=== PATIENT | female | born 1980 | race Caucasian/White ===

== ENCOUNTER → 2016-09-04 | Outpatient (CLI) | payer OTHER ==
[~2016-09-04] MED LIST: FERR325C PO; HYDR-3062 PO; IBP600T1 PO; LORA-877 PO; PNV1TABL9 PO
--- OUTSIDE RECORDS SUMMARY | 2016-09-04 08:44 | XMS REPORT | Continuity of Care Document ---
Author Author [facility] Organization [facility] Address Unknown Phone Unavailable Care Team Providers Care Specialty Finishing Utility Person Name Role Phone Kim Salgado PCP [phone] Source Comments Some departments are not documenting in the electronic medical record. If you do not see the information that you expected, contact Release of Information in the Health Information Management department at [phone] for further assistance in locating additional records.[facility] Active Allergies and Adverse Reactions No Known Allergies Current Medications Prescription Sig. Disp. Refills Start End Date Status Date MULTIVITAMIN PO Take by mouth. Active Active Problems No known active problems Social History Tobacco Use Types Packs/Day Years Used Date Never Smoker Alcohol Use Drinks/Week oz/Week Comments Yes rarely Last Filed Vital Signs Vital Sign Reading Time Taken Blood Pressure 123/79 12/24/2012 2:20 PM CDT Pulse 60 12/24/2012 2:20 PM CDT Temperature - - Respiratory Rate - - Height 1.575 m (5' 2") 12/24/2012 2:20 PM CDT Weight 60.963 kg (134 lb 6.4 oz) 12/24/2012 2:20 PM CDT Body Mass Index 24.58 12/24/2012 2:20 PM CDT Oxygen Saturation - - Plan of Care Health Maintenance Due Date Last Done Comments Physical (Comprehensive) 1988 Exam Pertussis Vaccine 1992 Tetanus Vaccine 1998 Cervical Cancer Screening 2002 Influenza Vaccine 04/06/2016 Results from Last 3 Months Not on file
--- NOTE | 2016-09-04 18:48 | Diagnostic Imaging Report ---
Exam: Bilateral breast ultrasound. Indication: Left breast lump. Followup right breast lesion seen at 1:30 o'clock position. Comparison: Right breast ultrasound from 06/08/2014. Findings: Left Breast: The area of lump around 10:30 o'clock position is scanned with no underlying abnormality seen. Right Breast: The right breast is also scanned around the 1:30 o'clock position where previous nodule was seen in 2013 with an underlying abnormality identified. Impression: Negative study. Clinical followup of palpable abnormality recommended. BI-RADS 1. ACR BI-RADS Category 1: Negative. Result letter will be mailed to the patient. Note: At least 10% of breast cancer is not imaged by mammography. Dictated by: Dictated on workstation # [id number]
== END ==
LOC: RAD 08:40
PROVIDERS: ATTEND Family Medicine
DX: N63 Unspecified lump in breast (principal)
CPT/HCPCS: 76642

== ENCOUNTER → 2018-02-25 | Outpatient (CLI) | payer OTHER ==
--- NOTE | 2018-02-25 08:54 | Diagnostic Imaging Report ---
PROCEDURE: US Gallbladder. TECHNIQUE: Multiple real-time grayscale images were obtained over the right upper quadrant in various projections. INDICATION: Epigastric pain. FINDINGS: Multiple stones within the gallbladder lumen, the gallbladder wall non-thickened, no pericholecystic edema or fluid and there was a negative Leach's sign. The biliary ducts are nondilated. The visualized portions of the pancreas are unremarkable. The right kidney normal in size, cortical thickness and echotexture. There is no fluid collection. IMPRESSION: Cholelithiasis, otherwise negative. Dictated by: Dictated on workstation # [id number]
== END ==
LOC: RAD 06:47
PROVIDERS: ATTEND Family Medicine
DX: K80.20 Calculus of gallbladder without cholecystitis without obstruction (principal)
CPT/HCPCS: 76705

== ENCOUNTER 2018-07-08 05:38 | Outpatient (CLI) | payer OTHER ==
[~2018-07-08] VITALS: Ht 157.5 cm; Wt 59.9 kg
== END 2018-07-08 14:43 | disposition home or self-care (01) ==
LOC: PREOP 05:38
PROVIDERS: ATTEND Surgery
DX: Z01.818 Encounter for other preprocedural examination (principal)

== ENCOUNTER 2018-07-16 10:34 | Day surgery (SDC) | payer OTHER ==
[~2018-07-16] VITALS: Ht 157.5 cm; Wt 60.0 kg
[2018-07-16] MEDS ORDERED: LIDOCAINE/EPI 1%-1:100,000 (XYLOCAINE) 20ML ONE ×2 (10:38→10:50)
[2018-07-16 10:40] VITALS: BP 114/78
--- OUTSIDE RECORDS SUMMARY | 2018-07-16 10:44 | XMS REPORT | Clinical Summary ---
Author Author [facility] Organization [facility] Address Unknown Phone Unavailable Care Team Providers Care Brain Picker Name Role Phone Rubi Adams MD Unavailable Kim Salgado MD PCP Jesus Gonzales OD Unavailable Source Comments Some departments are not documenting in the electronic medical record. If you do not see the information that you expected, contact Release of Information in the Health Information Management department at [phone] for further assistance in locating additional records.[facility] Allergies No Known Allergies Medications End Date Status Medication Sig Dispensed Refills Start Date Active MULTIVITAMIN PO Take by 0 mouth. Active Problems No known active problems Family History Medical History Relation Name Comments Hypertension Father Coronary Artery Disease Maternal Grandfather Macular Degen Maternal Grandfather Stroke Maternal Grandfather Cancer Other Cancer Paternal Aunt Amblyopia Neg Hx Autoimmune Disease Neg Hx Blindness Neg Hx Cataract Neg Hx Diabetes Neg Hx Glaucoma Neg Hx Neurologic Disorder Neg Hx Retinal Detachment Neg Hx Strabismus Neg Hx Thyroid Disease Neg Hx Relation Name Status Comments Father Maternal Grandfather Other Paternal Aunt Social History Date Tobacco Use Types Packs/Day Years Used Never Smoker Alcohol Use Drinks/Week oz/Week Comments Yes rarely Sex Assigned at Date Recorded Not on file Industry Job Start Date Occupation Not on file Not on file Not on file Travel End Travel History Travel Start No recent travel history available. Last Filed Vital Signs Time Taken Vital Sign Reading 12/24/2012 2:20 PM CDT Blood Pressure 123/79 12/24/2012 2:20 PM CDT Pulse 60 - Temperature - - Respiratory Rate - - Oxygen Saturation - - Inhaled Oxygen - Concentration 12/24/2012 2:20 PM CDT Weight 61 kg (134 lb 6.4 oz) 12/24/2012 2:20 PM CDT Height 157.5 cm (5' 2") 12/24/2012 2:20 PM CDT Body Mass Index 24.58 Plan of Treatment Health Maintenance Due Date Last Done Comments PHYSICAL (COMPREHENSIVE) 1988 EXAM HIV SCREENING 1996 DTAP/TDAP VACCINES (1 - 1999 Tdap) CERVICAL CANCER SCREENING 2011 INFLUENZA VACCINE 03/06/2018 Results Not on filefrom Last 3 Months
--- OUTSIDE RECORDS SUMMARY | 2018-07-16 10:44 | XMS REPORT ---
Author Author CLAUS CUETO [facility] Address [address] [place] [address] Care Team Providers Care Linen Controller Name Role Phone CLAUS CUETO Unavailable PROBLEMS Type Condition ICD9-CM Code ALP95-XK Code Onset Dates Condition Status SNOMED Code Problem Breast lump N63 Active 33212073 Problem IUD (intrauterine device) in place Z97.5 Active 090414983 Problem Calculus of gallbladder without cholecystitis without obstruction K80.20 Active 239754085 ALLERGIES No Information ENCOUNTERS Encounter Location Date Diagnosis [address] [address] May, Encounter for immunization Z23 [place] [address] [address] Feb, RUQ abdominal pain R10.[address] [address] Feb, RUQ abdominal pain R10.11 ; Cervical cancer screening Z12.4 ; Rectal bleeding K62.5 and Epidermal inclusion cyst L72.0 [facility] [address] [id number] [place] [id number] Jan, Dental examination Z01.20 [place] [address] [place] [id number] [place] [address] Jan, [address] [address] December, Rectal bleeding K62.5 ; Internal hemorrhoid, bleeding K64.8 and Generalized abdominal pain R10.84 [place] [address] [place] [id number] [place] [address] Oct, Encounter for dental examination and cleaning without abnormal findings Z01.20 and Dental examination Z01.20 [facility] [address] [id number] [place] [address] Sep, Dental examination Z01.20 [facility] [address] [place] [id number] [place] [address]- [address] 07 Sep, 2017 Right hip pain M25.551 [facility] [address] [address] Aug, Right hip pain M25.551 [facility] [address] [id number] [place] [address] May, Encounter for immunization Z23 [facility] [address] [id number] [place] [address]- [address] Mar, Well adult exam Z00.00 and Lymphadenopathy of right cervical region R59.0 [facility] [address] [address] Mar, Lymphadenopathy of right cervical region R59.0 [facility] [address] [id number] [place] [address]- [address] Jan, Well adult exam Z00.00 [facility] [address] [id number] [place] [address]- [address] Jan, Acute non-recurrent maxillary sinusitis J01.00 [facility] [id number] [place] [address]- [address] Aug, [facility] [address] [id number] [place] [address]- [address] Aug, Breast lump N63 [facility] [address] [address] Aug, Dental examination Z01.20 [facility] [address] [id number] [place] [address]- [address] May, Encounter for immunization Z23 [facility] [address], [place] [address] December, Encounter for gynecological examination without abnormal finding Z01.419 and IUD (intrauterine device) in place Z97.5 [facility] [id number] [place] [id number] Oct, Encounter for dental examination Z01.20 [facility] [address] [address] 29 Apr, 2015 Influenza vaccine administered V04.81 [facility] [address] [id number] Apr, 2015 Encounter for dental examination V72.2 [facility] [address] [address] 14 Feb, 2015 [facility] [address] 565272- [address] Jan, Hip pain, right 719.45 and Somatic dysfunction of pelvic region 739.5 [facility] [address] [address] Nov, [facility] [address] [address] Nov, [facility] [address] [id number] [place] [address]- [address] Aug, [facility] [address] [id number] [place] [address]- [address] Aug, [facility] [id number] [place] [address]- [address] Aug, [facility] [address] 416603- [address] Aug, [facility] [address] 0[address]- [address] May, [facility] [address] [id number] [place] [address]- [address] May, [facility] [place] [facility] [address] [id number] [place] [address] 14 May, 2014 [facility] [place] [facility] [address] [id number] [place] [address]49 14 May, 2014 [facility] [place] [facility] [address] [id number] [place] [address] May, [facility] [place] [facility] [address] [id number] [place] [address] May, [facility] [place] [facility] [address] [id number] [place] [address] Jan, [facility] [place] [facility] [address] [id number] [place] [address] 8947 Jan, [facility] [place] [facility] [address] [id number] [place] [address]- [address] Jan, [facility] [place] [facility] [address] [id number] [place] [address]- [address] Jan, [facility] [place] [facility] [address] [id number] [place] [address]- [address] Jan, [facility] [place] [facility] [address] [id number] [place] [address]- [address] Nov, [facility] [place] [facility] [address] [id number] [place] [address]- [address] Nov, [facility] [place] [facility] [address] [id number] [place] [address]- 6792 Nov, [facility] [place] [facility] [address] [id number] [place] [address]- [address] Nov, [facility] [place] [facility] [address] [id number] [place] [address]- [address] 16 Nov, 2013 [facility] [place] [facility] [address] [id number] [place] [address]- [address] 16 Nov, 2013 [facility] [place] [facility] [address] [id number] [place] [address]- 6078 Nov, [facility] [place] [facility] [address] [id number] [place] [address]- [address] Nov, [facility] [place] [facility] [address] [id number] [place] [address]- 4988 Nov, [facility] [place] [facility] [address] [id number] [place] [address]- 8853 Nov, [facility] [place] [facility] [address] [id number] [place] [address]- 288[address] Nov, [facility] [place] [facility] [address] [id number] [place] [address]- 4667 Nov, [facility] [place] [facility] [address] [id number] [place] [address]- 0957 Oct, [facility] [place] [facility] [address] [id number] [place] [address]- [address] Oct, [facility] [place] [facility] [address] [id number] [place] [address]- [address] Oct, [facility] [place] [facility] [address] [id number] [place] [address]- 59[address] Oct, [facility] [place] [facility] [address] [id number] [place] [address]- 46[address] Sep, [facility] [place] [facility] [address] [id number] [place] [address]- 7094 Sep, [facility] [place] [facility] [address] [id number] [place] [address]- 97[address] Sep, [facility] [place] [facility] [address] [id number] [place] [address]- 9[address] Sep, [facility] [place] [facility] [address] [id number] [place] [address]- [address]105 Sep, [facility] [place] [facility] [address] [id number] [place] [address]- 97[address] Sep, [facility] [place] [facility] [address] [id number] [place] [address]- 4964 Sep, [facility] [address] [id number] [place] [address]- 9096 Sep, [facility] [place] [facility] [address] [id number] [place] [address]- 6594 Aug, [facility] [place] [facility] [address] [id number] [place] [address]- 7955 Aug, [facility] [place] [facility] [address] [id number] [place] [address]- 3590 Aug, [facility] [place] [facility] [address] [id number] [place] [address]- 9027 Aug, [facility] [place] [facility] [address] [id number] [place] [address]- 2705 Aug, [facility] [place] [facility] [address] [id number] [place] [address]- 7204 Aug, [facility] [place] [facility] [address] [id number] [place] [address]- 74[address] Jul, [facility] [place] [facility] [address] [id number] [place] [address]- 4956 Jul, [facility] [place] [facility] [address] [id number] [place] [address]- 8956 Jun, [facility] [place] [facility] [address] [id number] [place] [address]- 5102 Jun, [facility] [place] [facility] [address] [id number] [place] [address]- 2640 Jun, [facility] [place] [facility] [address] [id number] [place] [address]- 4991 Jun, [facility] [place] [facility] [address] [id number] [place] [address]- 4394 Jun, [facility] [place] [facility] [address] [id number] [place] [address]- 5441 Jun, [facility] [address] [facility] [id number], [place] [address] Jun, [facility] [address] [facility] [id number], [place] [address]- [address] May, [facility] [address] [facility] [id number], [place] [address]- [address] May, [facility] [address] [facility] [id number], [place] [address]- [address] May, [facility] [address] [facility] [id number] [address] May, [facility] [address] [facility] [id number] [place] [address] 933662- [address]954 May, [facility] [address] [facility] [id number] May, [facility] [address] [facility] [id number], [place] [address]- 8979 May, [facility] [address] [facility] [id number] [address] May, [facility] [address] [facility] [id number] May, [facility] [address] [facility] [id number], [place] [address]- [address]15 Apr, IMMUNIZATIONS Vaccine Route Administration Date Status FLULAVAL QUAD 0.5ML (6 MO & UP) 2018 IM Intramuscular May 10, 2018 Administered SOCIAL HISTORY Never Assessed REASON FOR VISIT Flu shot-awoods PLAN OF CARE VITAL SIGNS MEDICATIONS Unknown Medications RESULTS No Results PROCEDURES Procedure Date Ordered Result Body Site FLULAVAL QUAD 0.5ML (6 MO AND UP) 2018 May 10, 2018 SINGLE IMMUNIZATION ADMIN May 10, 2018 INSTRUCTIONS MEDICATIONS ADMINISTERED No Known Medications MEDICAL (GENERAL) HISTORY Type Description Date Medical History no surgeries or serious illness Medical History IUD (intrauterine device) in place Surgical History surgical extraction of 3rd molars 08/2001 Hospitalization History No know Hospitalization history
--- OUTSIDE RECORDS SUMMARY | 2018-07-16 10:44 | XMS REPORT ---
Author Author CLAUS CUETO [facility] Address [address] [place] [address] Care Team Providers Care Oil Well Services Superintendent Name Role Phone CLAUS CUETO Unavailable PROBLEMS Type Condition ICD9-CM Code PED05-GH Code Onset Dates Condition Status SNOMED Code Problem Breast lump N63 Active 92496474 Problem IUD (intrauterine device) in place Z97.5 Active 017649593 Problem Calculus of gallbladder without cholecystitis without obstruction K80.20 Active 079324265 ALLERGIES No Information ENCOUNTERS Encounter Location Date Diagnosis [place] [address] [address]- 8[address] Jun, [place] [address] 47767- 9736 May, Encounter for immunization Z23 [place] [address] 69650- 3127 Feb, RUQ abdominal pain R10.11 [place] [address] 33060- 5774 Feb, RUQ abdominal pain R10.11 ; Cervical cancer screening Z12.4 ; Rectal bleeding K62.5 and Epidermal inclusion cyst L72.0 [facility] [address] [id number] Jan, Dental examination Z01.20 [place] [address] 36353- 4588 Jan, [place] [address] 77374- 9526 December, Rectal bleeding K62.5 ; Internal hemorrhoid, bleeding K64.8 and Generalized abdominal pain R10.84 [place] [address] [place] [address] 36468- 0973 Oct, Encounter for dental examination and cleaning without abnormal findings Z01.20 and Dental examination Z01.20 [facility] [address] [place] [id number] [place] [address] 94830- 7959 Sep, Dental examination Z01.20 [facility] [id number] [place] [address] 08280- 2997 Sep, Right hip pain M25.551 [facility] [id number] [place] [address] 67935- 2107 Aug, Right hip pain M25.551 [facility] [address] [id number] [place] [address] 72376- 6093 May, Encounter for immunization Z23 [facility] [id number] [place] [address] 83718- 3911 Mar, Well adult exam Z00.00 and Lymphadenopathy of right cervical region R59.0 [facility] [id number] [place] [address] 94394- 5645 Mar, Lymphadenopathy of right cervical region R59.0 [facility] [id number] [place] [address] 82973- 9346 Jan, Well adult exam Z00.00 [facility] [id number] [place] [address] 74810- 4267 Jan, Acute non-recurrent maxillary sinusitis J01.00 [facility] [id number] [place] [address] 76753- 7544 Aug, [facility] [id number] [place] [address] 91711- 8226 Aug, Breast lump N63 [facility] [id number] [place] [address] 59359- 3617 Aug, Dental examination Z01.20 [facility] [id number] [place] [address] [id number]- 7351 May, Encounter for immunization Z23 [facility] [id number] [place] [address] 18831- 6206 December, Encounter for gynecological examination without abnormal finding Z01.419 and IUD (intrauterine device) in place Z97.5 [facility] [address] [place] [id number] [place] [address] [id number] Oct, Encounter for dental examination Z01.20 [facility] [address] 92321- 0961 29 Apr, 2015 Influenza vaccine administered V04.81 [facility] [address] [id number] Apr, Encounter for dental examination V72.2 [facility] [address] 20001- 4768 Feb, [facility] [address] 81338- 4191 Jan, Hip pain, right 719.45 and Somatic dysfunction of pelvic region 739.5 [facility] [address] [place] [id number] [place] [address] 62478- 5898 Nov, [facility] [address] [address] [id number] [place] [address] 97276- 8184 Nov, [facility] [address] [place] [id number] [place] [address] 15563- 9633 Aug, [facility] [address] [id number] [place] [address] 50611- 7938 Aug, [facility] [address] [place] [address] [id number] [place] [address] 18940- 6262 Aug, [facility] [address] [id number]- 7806 Aug, [facility] [address] [place] [id number] [place] [address] 59320- 6975 May, [facility] [place] [facility] [address] [id number] [place] [address]- 5130 27 May, 2014 [facility] [place] [facility] [address] [id number] [place] [address]- 4726 May, [facility] [place] [facility] [address] [id number] [place] [address]- 6927 May, [facility] [place] [facility] [address] [id number] [place] [address]- 2120 May, [facility] [place] [facility] [address] [id number] [place] [address]- 7719 May, [facility] [place] [facility] [address] [id number] [place] [address]- 4198 Jan, [facility] [place] [facility] [address] [id number] [place] [address]- 7930 Jan, [facility] [place] [facility] [address] [id number] [place] [address]- 4889 Jan, [facility] [place] [facility] [address] [id number] [place] [address]- 4148 Jan, [facility] [place] [facility] [address] [id number] [place] [address]- 5319 Jan, [facility] [place] [facility] [address] [id number] [place] [address]- 9124 Nov, [facility] [place] [facility] [address] [id number] [place] [address]- 5910 Nov, [facility] [place] [facility] [address] [id number] [place] [address]- 3434 Nov, [facility] [place] [facility] [address] [id number] [place] [address]- 2239 Nov, [facility] [place] [facility] [address] [id number] [place] [address]- 1313 Nov, [facility] [place] [facility] [address] [id number] [place] [address]- 1573 Nov, [facility] [place] [facility] [address] [id number] [place] [address]- 1334 Nov, [facility] [place] [facility] [address] [id number] [place] [address]- 4539 Nov, [facility] [place] [facility] [address] [id number] [place] [address]- 0242 Nov, [facility] [place] [facility] [address] [id number] [place] [address]- 3108 Nov, [facility] [place] [facility] [address] [id number] [place] [address]- 4398 Nov, [facility] [place] [facility] [address] [id number] [place] [address]- 7499 Nov, [facility] [place] [facility] [address] [id number] [place] [address]- 6815 Oct, [facility] [place] [facility] [address] [id number] [place] [address]- 7201 Oct, [facility] [place] [facility] [address] [id number] [place] [address]- 2420 Oct, [facility] [place] [facility] [address] [id number] [place] [address]- 7198 Oct, [facility] [place] [facility] [address] [id number] [place] [address]- 0790 Sep, [facility] [place] [facility] [address] [id number] [place] [address]- 5901 Sep, [facility] [place] [facility] [address] [id number] [place] [address]- 4895 Sep, [facility] [place] [facility] [address] [id number] [place] [address]- 5669 Sep, [facility] [place] [facility] [address] [id number] [place] [address]- 1951 Sep, [facility] [place] [facility] [address] [id number] [place] [address]- 0500 13 Sep, 2013 [facility] [address] [id number] [place] [address]- 1529 Sep, [facility] [place] [facility] [address] [id number] [place] [address]- 9076 Sep, [facility] [place] [facility] [address] [id number] [place] [address]- 0148 Aug, [facility] [place] [facility] [address] [id number] [place] [address]- 8638 Aug, [facility] [place] [facility] [address] [id number] [place] [address]- 7445 Aug, [facility] [place] [facility] [address] [id number] [place] [address]- 7397 Aug, [facility] [place] [facility] [address] [id number] [place] [address]- 1851 Aug, [facility] [place] [facility] [address] [id number] [place] [address]- 2115 Aug, [facility] [place] [facility] [address] [id number] [place] [address]- 0395 Jul, [facility] [place] [facility] [address] [id number] [place] [address]- 3406 Jul, [facility] [place] [facility] [address] [id number] [place] [address]- 4844 Jun, [facility] [place] [facility] [address] [id number] [place] [address]- 8646 Jun, [facility] [place] [facility] [address] [id number] [place] [address]- 1647 Jun, [facility] [place] [facility] [address] [id number] [place] [address]- 9028 Jun, [facility] [place] [facility] [address] [id number] [place] [address]- 6726 Jun, [facility] [address] [facility] [id number], [place] [address]- 8245 Jun, [facility] [address] [facility] [id number], [place] [address]- 5794 Jun, [facility] [address] [facility] [id number], [place] [address]- 3936 May, [facility] [address] [facility] [id number], [place] [address]- 0216 May, [facility] [address] [facility] [id number], [place] [address]- 1404 May, [facility] [address] [facility] [id number] [place] [address] 01301- 7008 May, [facility] [address], [place] [address]- 8085 May, [facility] [address] [address]- 1843 May, [facility] [address] [id number] 6159 May, [facility] [address] 1315 May, [facility] [address], [place] [address]- 5519 May, [facility] [address] [id number], [place] [address]- 6763 Apr, IMMUNIZATIONS No Known Immunizations SOCIAL HISTORY Never Assessed REASON FOR VISIT Referral PLAN OF CARE VITAL SIGNS MEDICATIONS Unknown Medications RESULTS No Results PROCEDURES No Known procedures INSTRUCTIONS MEDICATIONS ADMINISTERED No Known Medications MEDICAL (GENERAL) HISTORY Type Description Date Medical History no surgeries or serious illness Medical History IUD (intrauterine device) in place Surgical History surgical extraction of 3rd molars 08/2001 Hospitalization History No know Hospitalization history
--- OUTSIDE RECORDS SUMMARY | 2018-07-16 10:45 | XMS REPORT ---
Author Author CLAUS CUETO [facility] Address [address] [place] [address] Care Team Providers Care Lead Software Development Engineer Name Role Phone CLAUS CUETO Unavailable PROBLEMS Type Condition ICD9-CM Code JEA42-OA Code Onset Dates Condition Status SNOMED Code Problem Breast lump N63 Active 43790357 Problem IUD (intrauterine device) in place Z97.5 Active 414061077 Problem Calculus of gallbladder without cholecystitis without obstruction K80.20 Active 789760111 ALLERGIES No Known Allergies ENCOUNTERS Encounter Location Date Diagnosis [place] [id number] [address]- 8626 Feb, RUQ abdominal pain R10.11 [place] [address] [address]14- 6260 Feb, RUQ abdominal pain R10.11 ; Cervical cancer screening Z12.4 ; Rectal bleeding K62.5 and Epidermal inclusion cyst L72.0 [facility] [facility] [address] [place] [id number] [place] [address] [id number] Jan, Dental examination Z01.20 [place] [address] [place] [id number] [place] [address] 66434- 9218 Jan, [facility] [address] [place] [id number] [place] [address] 41356- 6722 December, Rectal bleeding K62.5 ; Internal hemorrhoid, bleeding K64.8 and Generalized abdominal pain R10.84 [place] [address] [place] [id number] [place] [address] 16137- 2347 Oct, Encounter for dental examination and cleaning without abnormal findings Z01.20 and Dental examination Z01.20 [facility] [address] [place] [id number] [place] [address] 07863- 3447 Sep, Dental examination Z01.20 [facility] [address] [place] [id number] [place] [address] 76229- 1018 07 Sep, 2017 Right hip pain M25.551 [facility] [address] [place] [id number] [place] [address] 80484- 9318 Aug, Right hip pain M25.551 [facility] [address] 88436- 8985 May, Encounter for immunization Z23 [facility] [address] [place] [id number] [place] [address] 31847- 4614 Mar, Well adult exam Z00.00 and Lymphadenopathy of right cervical region R59.0 [facility] [address] [place] [id number] [place] [address] 74302- 4250 Mar, Lymphadenopathy of right cervical region R59.0 [facility] [address] [place] [id number] [place] [address] 56668- 8436 Jan, Well adult exam Z00.00 [facility] [address] [place] [id number] [place] [address] 64019- 1807 Jan, Acute non-recurrent maxillary sinusitis J01.00 [facility] [address] [place] [id number] [place] [address] 98333- 4437 Aug, [facility] [address] [place] [id number] [place] [address] 46392- 2647 Aug, Breast lump N63 [facility] [address] [place] [id number] [place] [address] 37129- 5414 Aug, Dental examination Z01.20 [facility] [address] [place] [id number] [place] [address] 36637- 2060 14 May, 2016 Encounter for immunization Z23 [facility] [address] [place] [id number] [place] [address] 30919- 9125 December, Encounter for gynecological examination without abnormal finding Z01.419 and IUD (intrauterine device) in place Z97.5 [facility] [facility] [address] [id number] 21 Oct, 2015 Encounter for dental examination Z01.20 [facility] [address] [place] [id number] [place] [address] 99759- 1926 29 Apr, 2015 Influenza vaccine administered V04.81 [facility] [facility] [address] [id number] 14 Apr, 2015 Encounter for dental examination V72.2 [facility] [address] [place] [id number] [place] [address] 54531- 6906 14 Feb, 2015 [facility] [address] [place] [id number] [place] [address] 72572- 0251 08 Jan, 2015 Hip pain, right 719.45 and Somatic dysfunction of pelvic region 739.5 [facility] [address] [place] [address] 65585- 5905 Nov, [facility] [address] [place] [id number] [place] [address] [id number]- 1267 Nov, [facility] [address] [place] [address] 461184- 9694 Aug, [facility] [address] [place] [address] [id number]- 1750 Aug, [facility] [address] [address]- 5321 Aug, [facility] [address] [place] [id number] [place] [address] 57593139- 4832 Aug, [facility] [address] 1806 May, [facility] [address] [place] [address] 66122- 8866 May, [facility] [address] 0664 May, [facility] [address] [place] [id number] [place] [address]- 3672 14 May, 2014 [facility] [address] [id number] [place] [address]- 0088 May, [facility] [place] [facility] [address] [id number] [place] [address]- 1648 May, [facility] [address] [id number] [place] [address]- 9488 Jan, [facility] [place] [facility] [address] [id number] [place] [address]- 2038 Jan, [facility] [place] [facility] [address] [id number] [place] [address]- 1332 Jan, [facility] [place] [facility] [address] [id number] [place] [address]- 6126 Jan, [facility] [place] [facility] [address] [id number] [place] [address]- 3657 Jan, [facility] [place] [facility] [address] [id number] [place] [address]- 1223 Nov, [facility] [place] [facility] [address] [id number] [place] [address]- 2387 Nov, [facility] [place] [facility] [address] [id number] [place] [address]- 0878 Nov, [facility] [place] [facility] [address] [id number] [place] [address]- 8150 Nov, [facility] [place] [facility] [address] [id number] [place] [address]- 8078 Nov, [facility] [place] [facility] [address] [id number] [place] [address]- 4112 Nov, [facility] [place] [facility] [address] [id number] [place] [address]- 3081 Nov, [facility] [place] [facility] [address] [id number] [place] [address]- 3500 Nov, [facility] [place] [facility] [address] [id number] [place] [address]- 7098 Nov, [facility] [place] [facility] [address] [id number] [place] [address]- 8129 Nov, [facility] [place] [facility] [address] [id number] [place] [address]- 3352 Nov, [facility] [place] [facility] [address] [id number] [place] [address]- 1940 Nov, [facility] [place] [facility] [address] [id number] [place] [address]- 2439 Oct, [facility] [place] [facility] [address] [id number] [place] [address]- 6862 Oct, [facility] [place] [facility] [address] [id number] [place] [address]- 9268 Oct, [facility] [place] [facility] [address] [id number] [place] [address]- 3548 Oct, [facility] [place] [facility] [address] [id number] [place] [address]- 8954 Sep, [facility] [place] [facility] [address] [id number] [place] [address]- 4739 Sep, [facility] [place] [facility] [address] [id number] [place] [address]- 3002 Sep, [facility] [place] [facility] [address] [id number] [place] [address]- 3379 Sep, [facility] [place] [facility] [address] [id number] [place] [address]- 6424 Sep, [facility] [place] [facility] [address] [id number] [place] [address]- 3287 Sep, [facility] [place] [facility] [address] [facility] [id number] [place] [address]- 8620 Sep, [facility] [place] [facility] [address] [id number] [place] [address]- 8533 Sep, [facility] [address] [id number] [place] [address]- 5516 Aug, [facility] [address] [id number] [place] [address]- 7113 Aug, [facility] [address] [id number] [place] [address]- 9938 Aug, [facility] [address] [id number] [place] [address]- 9487 Aug, [facility] [address] [id number] [place] [address]- 5663 Aug, [facility] [address] [id number] [place] [address]- 8040 Aug, [facility] [address] [id number] [place] [address]- 4262 Jul, [facility] [address] [id number] [place] [address]- 6169 Jul, [facility] [address] [id number] [place] [address]- 3549 Jun, [facility] [address] [id number] [place] [address]- 5869 Jun, [facility] [place] [facility] [address] [id number] [place] [address]- 2730 Jun, [facility] [address] [id number] [place] [address] Jun, [facility] [place] [facility] [address] [id number] [place] [address] Jun, [facility] [place] [facility] [address] [id number] [place] [address] Jun, [facility] [address] [id number] [place] [address] Jun, [facility] [address] [id number] [address] May, [facility] [id number] [address] May, [facility] [id number], [place] [address] May, [facility] [id number], [place] [address] May, [facility] [id number], [place] [address] May, [facility] [id number], [place] [address] May, [facility] [id number], [place] [address] May, [facility] [id number], [place] [address] May, [facility] [address], [place] [address] May, [facility] [address], [place] [address] Apr, IMMUNIZATIONS No Known Immunizations SOCIAL HISTORY Never Assessed REASON FOR VISIT Abdominal Pain--tcuppettRN, Abdominal pain x 1 month, Perineal cyst concerns PLAN OF CARE Activity Details Follow Up prn Reason: VITAL SIGNS Height 62 in 2018-02-07 Weight 131.0 lbs 2018-02-07 Temperature 98.1 degrees Fahrenheit 2018-02-07 Heart Rate 64 bpm 2018-02-07 Respiratory Rate 20 2018-02-07 BMI 23.96 kg/m2 2018-02-07 Blood pressure systolic 108 mmHg 2018-02-07 Blood pressure diastolic 72 mmHg 2018-02-07 MEDICATIONS Medication Instructions Dosage Frequency Start Date End Date Duration Status Mirena Active Tylenol 1 tab Active Ibuprofen 200 MG Orally every 6 hrs 1 tablet with food or milk as needed 6h Active RESULTS No Results PROCEDURES Procedure Date Ordered Result Body Site SPECIMEN HANDLING February 07, 2018 TEST FOR BLOOD, FECES February 07, 2018 INSTRUCTIONS MEDICATIONS ADMINISTERED No Known Medications MEDICAL (GENERAL) HISTORY Type Description Date Medical History no surgeries or serious illness Medical History IUD (intrauterine device) in place Surgical History surgical extraction of 3rd molars 08/2001 Hospitalization History No know Hospitalization history
--- OUTSIDE RECORDS SUMMARY | 2018-07-16 10:45 | XMS REPORT ---
Author Author CLAUS CUETO [facility] Address [address] [place] [address] Care Team Providers Care Dental Assisting Instructor Name Role Phone CLAUS CUETO Unavailable PROBLEMS Type Condition ICD9-CM Code NVK54-FT Code Onset Dates Condition Status SNOMED Code Problem Breast lump N63 Active 67245430 Problem IUD (intrauterine device) in place Z97.5 Active 467497373 Problem Calculus of gallbladder without cholecystitis without obstruction K80.20 Active 195052916 ALLERGIES No Information ENCOUNTERS Encounter Location Date Diagnosis [place] [address] [address]- [address] Feb, RUQ abdominal pain R10.11 [place] [address] 58049- 7398 Feb, RUQ abdominal pain R10.11 ; Cervical cancer screening Z12.4 ; Rectal bleeding K62.5 and Epidermal inclusion cyst L72.0 [facility] [id number] [place] [address] [id number] Jan, Dental examination Z01.20 [place] [id number] [place] [address] 74174- 1932 Jan, [facility] [address] [place] [address] 57456- 4514 December, Rectal bleeding K62.5 ; Internal hemorrhoid, bleeding K64.8 and Generalized abdominal pain R10.[address] [address]- 8406 Oct, Encounter for dental examination and cleaning without abnormal findings Z01.20 and Dental examination Z01.20 [facility] [address] 28614- 1164 Sep, Dental examination Z01.20 [facility] [id number] [place] [address] 69792- 2540 07 Sep, 2017 Right hip pain M25.551 [facility] [id number] [place] [address] 15578- 0720 Aug, Right hip pain M25.551 [facility] [address] 00811- 2386 May, Encounter for immunization Z23 [facility] [id number] [place] [address] 63540- 1704 Mar, Well adult exam Z00.00 and Lymphadenopathy of right cervical region R59.0 [place] [id number] [place] [address] 76225- 9987 Mar, Lymphadenopathy of right cervical region R59.0 [place] [id number] [place] [address] 81013- 7105 Jan, Well adult exam Z00.00 [facility] [id number] [place] [address] 50750- 2292 Jan, Acute non-recurrent maxillary sinusitis J01.00 [facility] [id number] [place] [address] 54872- 6987 Aug, [facility] [id number] [place] [address] 32748- 8559 Aug, Breast lump N63 [facility] [id number] [place] [address] 60346- 9859 Aug, Dental examination Z01.20 [place] [id number] [place] [address] 94638- 4290 14 May, 2016 Encounter for immunization Z23 [facility] [id number] [place] [address] 74867- 3126 December, Encounter for gynecological examination without abnormal finding Z01.419 and IUD (intrauterine device) in place Z97.5 [facility] [address] [id number] 21 Oct, 2015 Encounter for dental examination Z01.20 [facility] [id number] [place] [address] 06116- 6386 29 Apr, 2015 Influenza vaccine administered V04.81 [facility] [address] [id number] 14 Apr, 2015 Encounter for dental examination V72.2 [facility] [id number] [place] [address] 02039- 5921 14 Feb, 2015 [facility] [id number] [place] [address] 77389- 8850 08 Jan, 2015 Hip pain, right 719.45 and Somatic dysfunction of pelvic region 739.5 [facility] [id number] [place] [address] 53924- 6597 Nov, [facility] [id number] [place] [address] [id number]- 2341 Nov, [facility] [id number] [place] [address] 309198- 5393 Aug, [facility] [id number] [place] [address] [id number]- 2010 Aug, [facility] [address], [place] [address]- 2124 Aug, [facility] [id number] [place] [address] [id number]- 2698 Aug, [facility] [address] [address] 6536 May, [facility] [id number] [place] [address] 02119- 7166 May, [facility] [address] 2264 May, [facility] [id number] [address]- 9104 14 May, 2014 [facility] [address] [id number] [place] [address]- 8309 May, [facility] [place] [facility] [address] [id number] [place] [address]- 4306 May, [facility] [place] [facility] [address] [id number] [place] [address]- 3600 Jan, [facility] [place] [facility] [address] [id number] [place] [address]- 2769 Jan, [facility] [place] [facility] [address] [id number] [place] [address]- 5039 Jan, [facility] [place] [facility] [address] [id number] [place] [address]- 7391 Jan, [facility] [place] [facility] [address] [id number] [place] [address]- 0358 Jan, [facility] [place] [facility] [address] [id number] [place] [address]- 5420 Nov, [facility] [place] [facility] [address] [id number] [place] [address]- 3452 Nov, [facility] [place] [facility] [address] [id number] [place] [address]- 5621 Nov, [facility] [place] [facility] [address] [id number] [place] [address]- 6860 Nov, [facility] [place] [facility] [address] [id number] [place] [address]- 9123 16 Nov, 2013 [facility] [place] [facility] [address] [id number] [place] [address]- 6187 Nov, [facility] [place] [facility] [address] [id number] [place] [address]- 0266 Nov, [facility] [place] [facility] [address] [id number] [place] [address]- 1012 Nov, [facility] [place] [facility] [address] [id number] [place] [address]- 2439 Nov, [facility] [place] [facility] [address] [id number] [place] [address]- 4996 Nov, [facility] [place] [facility] [address] [id number] [place] [address]- 3259 Nov, [facility] [place] [facility] [address] [id number] [place] [address]- 3130 Nov, [facility] [place] [facility] [address] [id number] [place] [address]- 3253 Oct, [facility] [place] [facility] [address] [id number] [place] [address]- 6572 Oct, [facility] [place] [facility] [address] [id number] [place] [address]- 7770 Oct, [facility] [place] [facility] [address] [id number] [place] [address]- 6169 Oct, [facility] [place] [facility] [address] [id number] [place] [address]- 9765 Sep, [facility] [place] [facility] [address] [id number] [place] [address]- 3001 Sep, [facility] [place] [facility] [address] [id number] [place] [address]- 1022 Sep, [facility] [place] [facility] [address] [id number] [place] [address]- 2284 Sep, [facility] [place] [facility] [address] [id number] [place] [address]- 0688 Sep, [facility] [place] [facility] [address] [id number] [place] [address]- 7224 Sep, [facility] [place] [facility] [address] [id number] [place] [address]- 2993 Sep, [facility] [place] [facility] [address] [id number] [place] [address]- 9409 Sep, [facility] [address] [id number] [place] [address]- 1289 Aug, [facility] [address] [id number] [place] [address]- 1633 Aug, [facility] [address] [id number] [place] [address]- 6924 Aug, [facility] [address] [id number] [place] [address]- 0702 Aug, [facility] [address] [id number] [place] [address]- 0529 Aug, [facility] [address] [id number] [place] [address]- 2420 Aug, [facility] [address] [id number] [place] [address]- 8048 Jul, [facility] [address] [id number] [place] [address]- 3856 Jul, [facility] [address] [id number] [place] [address]- 3022 Jun, [facility] [address] [id number] [place] [address]- 2984 Jun, [facility] [address] [id number] [place] [address]- 4516 Jun, [facility] [address] [id number] [place] [address]- 2965 Jun, [facility] [place] [facility] [address] [id number] [place] [address]- 7765 Jun, [facility] [place] [facility] [address] [id number] [place] [address]- 3033 Jun, [facility] [address] [id number] [place] [address]- 3864 Jun, [facility] [address] [facility] [id number] [address]- 2165 May, [facility] [address] [facility] [id number], [place] [address]- 4624 May, [facility] [address] [facility] [id number], [place] [address]- 8638 May, [facility] [address] [facility] [id number], [place] [address]- 9430 May, [facility] [address] [facility] [id number], [place] [address]- 2959 May, [facility] [address] [facility] [id number], [place] [address]- 2808 May, [facility] [address], [place] [address]- 6595 May, [facility] [address], [place] [address]- 4876 May, [facility] [address], [place] [address]- 3936 May, [facility] [id number], [place] [address]- 9442 Apr, IMMUNIZATIONS No Known Immunizations SOCIAL HISTORY Never Assessed REASON FOR VISIT well woman exam PLAN OF CARE VITAL SIGNS MEDICATIONS Unknown Medications RESULTS No Results PROCEDURES No Known procedures INSTRUCTIONS MEDICATIONS ADMINISTERED No Known Medications MEDICAL (GENERAL) HISTORY Type Description Date Medical History no surgeries or serious illness Medical History IUD (intrauterine device) in place Surgical History surgical extraction of 3rd molars 08/2001
--- OUTSIDE RECORDS SUMMARY | 2018-07-16 10:45 | XMS REPORT ---
Author Author CLAUS CUETO [facility] Address [address] [place] [address] Care Team Providers Care International Trade Compliance Manager Name Role Phone CLAUS CUETO Unavailable PROBLEMS Type Condition ICD9-CM Code OZI69-GO Code Onset Dates Condition Status SNOMED Code Problem Breast lump N63 Active 38085885 Problem IUD (intrauterine device) in place Z97.5 Active 322892810 Problem Calculus of gallbladder without cholecystitis without obstruction K80.20 Active 552598482 ALLERGIES No Information ENCOUNTERS Encounter Location Date Diagnosis [place] [address] [address]- 0628 Feb, RUQ abdominal pain R10.11 [place] [address] 01419- 5030 Feb, RUQ abdominal pain R10.11 ; Cervical cancer screening Z12.4 ; Rectal bleeding K62.5 and Epidermal inclusion cyst L72.0 [facility] [id number] [place] [address] [id number] Jan, Dental examination Z01.20 [place] [id number] [place] [address] 21586- 2369 Jan, [facility] [address] [place] [address] 49701- 6205 December, Rectal bleeding K62.5 ; Internal hemorrhoid, bleeding K64.8 and Generalized abdominal pain R10.[address] 6[address]87- 8435 Oct, Encounter for dental examination and cleaning without abnormal findings Z01.20 and Dental examination Z01.20 [facility] [address] 60794- 7676 Sep, Dental examination Z01.20 [facility] [id number] [place] [address] 43471- 4695 07 Sep, 2017 Right hip pain M25.551 [facility] [id number] [place] [address] 59653- 5038 Aug, Right hip pain M25.551 [facility] [address] 82542- 1168 May, Encounter for immunization Z23 [facility] [id number] [place] [address] 68405- 0261 Mar, Well adult exam Z00.00 and Lymphadenopathy of right cervical region R59.0 [place] [id number] [place] [address] 65657- 7170 Mar, Lymphadenopathy of right cervical region R59.0 [place] [id number] [place] [address] 88873- 6109 Jan, Well adult exam Z00.00 [facility] [id number] [place] [address] 01726- 5667 Jan, Acute non-recurrent maxillary sinusitis J01.00 [facility] [id number] [place] [address] 59170- 9508 Aug, [facility] [id number] [place] [address] 48494- 2144 Aug, Breast lump N63 [facility] [id number] [place] [address] 58220- 2039 Aug, Dental examination Z01.20 [place] [id number] [place] [address] 65823- 0759 14 May, 2016 Encounter for immunization Z23 [facility] [id number] [place] [address] 06840- 4867 December, Encounter for gynecological examination without abnormal finding Z01.419 and IUD (intrauterine device) in place Z97.5 [facility] [address] [id number] 21 Oct, 2015 Encounter for dental examination Z01.20 [facility] [id number] [place] [address] 40415- 1986 29 Apr, 2015 Influenza vaccine administered V04.81 [facility] [address] [id number] 14 Apr, 2015 Encounter for dental examination V72.2 [facility] [id number] [place] [address] 26922- 4014 14 Feb, 2015 [facility] [id number] [place] [address] 50675- 1722 08 Jan, 2015 Hip pain, right 719.45 and Somatic dysfunction of pelvic region 739.5 [facility] [id number] [place] [address] 00922- 5725 Nov, [facility] [id number] [place] [address] [id number]- 6385 Nov, [facility] [address] [place] [address] 887121- 6012 Aug, [facility] [id number] [place] [address] [id number]- 4861 Aug, [facility] [address], [place] [address]- 7423 Aug, [facility] [id number] [place] [address] [id number]- 8726 Aug, [facility] [address] 4280 May, [facility] [id number] [place] [address] 43163- 3836 May, [facility] [address] 9691 May, [facility] [id number] [place] [address]- 9040 14 May, 2014 [facility] [address] [id number] [place] [address]- 8468 May, [facility] [place] [facility] [address] [id number] [place] [address]- 5865 May, [facility] [place] [facility] [address] [id number] [place] [address]- 5942 Jan, [facility] [place] [facility] [address] [id number] [place] [address]- 9659 Jan, [facility] [place] [facility] [address] [id number] [place] [address]- 8190 Jan, [facility] [place] [facility] [address] [id number] [place] [address]- 8088 Jan, [facility] [place] [facility] [address] [id number] [place] [address]- 3021 Jan, [facility] [place] [facility] [address] [id number] [place] [address]- 3839 Nov, [facility] [place] [facility] [address] [id number] [place] [address]- 9960 Nov, [facility] [place] [facility] [address] [id number] [place] [address]- 2751 Nov, [facility] [place] [facility] [address] [id number] [place] [address]- 7910 Nov, [facility] [place] [facility] [address] [id number] [place] [address]- 0476 16 Nov, 2013 [facility] [place] [facility] [address] [id number] [place] [address]- 3424 Nov, [facility] [place] [facility] [address] [id number] [place] [address]- 1120 Nov, [facility] [place] [facility] [address] [id number] [place] [address]- 7145 Nov, [facility] [place] [facility] [address] [id number] [place] [address]- 4158 Nov, [facility] [place] [facility] [address] [id number] [place] [address]- 8676 Nov, [facility] [place] [facility] [address] [id number] [place] [address]- 4372 Nov, [facility] [place] [facility] [address] [id number] [place] [address]- 9212 Nov, [facility] [place] [facility] [address] [id number] [place] [address]- 3937 Oct, [facility] [place] [facility] [address] [id number] [place] [address]- 2592 Oct, [facility] [place] [facility] [address] [id number] [place] [address]- 2084 Oct, [facility] [place] [facility] [address] [id number] [place] [address]- 5677 Oct, [facility] [place] [facility] [address] [id number] [place] [address]- 7663 Sep, [facility] [place] [facility] [address] [id number] [place] [address]- 6587 Sep, [facility] [place] [facility] [address] [id number] [place] [address]- 2592 Sep, [facility] [place] [facility] [address] [id number] [place] [address]- 4585 Sep, [facility] [place] [facility] [address] [id number] [place] [address]- 7166 Sep, [facility] [place] [facility] [address] [id number] [place] [address]- 4755 Sep, [facility] [place] [facility] [address] [id number] [place] [address]- 5549 Sep, [facility] [place] [facility] [address] [id number] [place] [address]- 6569 Sep, [facility] [address] [id number] [place] [address]- 8570 Aug, [facility] [address] [id number] [place] [address]- 1074 Aug, [facility] [address] [id number] [place] [address]- 4113 Aug, [facility] [address] [id number] [place] [address]- 6985 Aug, [facility] [address] [id number] [place] [address]- 0030 Aug, [facility] [address] [id number] [place] [address]- 4800 Aug, [facility] [address] [id number] [place] [address]- 2887 Jul, [facility] [address] [id number] [place] [address]- 0134 Jul, [facility] [address] [id number] [place] [address]- 1834 Jun, [facility] [address] [id number] [place] [address]- 9256 Jun, [facility] [address] [id number] [place] [address]- 0871 Jun, [facility] [address] [id number] [place] [address]- 7026 Jun, [facility] [place] [facility] [address] [id number] [place] [address]- 7749 Jun, [facility] [place] [facility] [address] [id number] [place] [address]- 0541 Jun, [facility] [address] [id number] [place] [address] Jun, [facility] [id number] [address] May, [facility] [address] [facility] [id number], [place] [address] May, [facility] [address] [facility] [id number], [place] [address] May, [facility] [address] [facility] [id number], [place] [address] May, [facility] [address] [facility] [id number], [place] [address] May, [facility] [id number], [place] [address] May, [facility] [id number], [place] [address] May, [facility] [id number], [place] [address] May, [facility] [id number], [place] [address] May, [facility] [address] [id number], [place] [address] Apr, IMMUNIZATIONS No Known Immunizations SOCIAL HISTORY Never Assessed REASON FOR VISIT Lab (walk-in)--GHAZAL Marlow PLAN OF CARE VITAL SIGNS MEDICATIONS Unknown Medications RESULTS No Results PROCEDURES Procedure Date Ordered Result Body Site COMPREHEN METABOLIC PANEL February 11, 2018 COMPLETE CBC W/AUTO DIFF WBC February 11, 2018 VENIPUNCT, ROUTINE* February 11, 2018 INSTRUCTIONS MEDICATIONS ADMINISTERED No Known Medications MEDICAL (GENERAL) HISTORY Type Description Date Medical History no surgeries or serious illness Medical History IUD (intrauterine device) in place Surgical History surgical extraction of 3rd molars 08/2001
--- OUTSIDE RECORDS SUMMARY | 2018-07-16 10:45 | XMS REPORT ---
Author Author KRISTI HARRELL Organization [facility] Address [address] [place] [address] Care Team Providers Care Software Applications Designer Name Role Phone KRISTI HARRELL Unavailable PROBLEMS Type Condition ICD9-CM Code VJM37-HH Code Onset Dates Condition Status SNOMED Code Problem Breast lump N63 Active 31382177 Problem IUD (intrauterine device) in place Z97.5 Active 232385865 Problem Calculus of gallbladder without cholecystitis without obstruction K80.20 Active 557159385 ALLERGIES No Known Allergies ENCOUNTERS Encounter Location Date Diagnosis [place] [address] [address]- [address] Feb, RUQ abdominal pain R10.11 [place] [address] 22557- 6266 Feb, RUQ abdominal pain R10.11 ; Cervical cancer screening Z12.4 ; Rectal bleeding K62.5 and Epidermal inclusion cyst L72.0 [facility] [address] [place] [id number] [place] [address] [id number] Jan, Dental examination Z01.20 [place] [address] [address]47- 2082 Jan, [place] [address] [place] [id number] [place] [address] 40055- 1764 December, Rectal bleeding K62.5 ; Internal hemorrhoid, bleeding K64.8 and Generalized abdominal pain R10.84 [place] [address] 28753- 5596 Oct, Encounter for dental examination and cleaning without abnormal findings Z01.20 and Dental examination Z01.20 [facility] [address] 70076- 4409 Sep, Dental examination Z01.20 [facility] [address] [place] [id number] [place] [address] 38608- 2861 07 Sep, 2017 Right hip pain M25.551 [facility] [address] [place] [address] [id number] [place] [address] 33084- 6865 Aug, Right hip pain M25.551 [facility] [address] 24232- 4324 May, Encounter for immunization Z23 [facility] [address] 87759- 1516 Mar, Well adult exam Z00.00 and Lymphadenopathy of right cervical region R59.0 [facility] [address] 13507- 6853 Mar, Lymphadenopathy of right cervical region R59.0 [facility] [address] 76596- 3195 Jan, Well adult exam Z00.00 [facility] [address] 68211- 5387 Jan, Acute non-recurrent maxillary sinusitis J01.00 [facility] [address] [address] [id number] [place] [address] 77322- 3839 Aug, [facility] [address] [id number] [place] [address] 80885- 5737 Aug, Breast lump N63 [facility] [address] [address] [id number] [place] [address] 04462- 2627 Aug, Dental examination Z01.20 [facility] [address] [place] [address] [id number] [place] [address] 57793- 9444 May, Encounter for immunization Z23 [facility] [address] [place] [address] [id number] [place] [address] 87783- 9255 December, Encounter for gynecological examination without abnormal finding Z01.419 and IUD (intrauterine device) in place Z97.5 [facility] [id number] [place] [address] [id number] Oct, Encounter for dental examination Z01.20 [facility] [address] [address] [id number] [place] [address] 99110- 9256 29 Apr, 2015 Influenza vaccine administered V04.81 [facility] [address] [address] [id number] [place] [address] [id number] 14 Apr, 2015 Encounter for dental examination V72.2 [facility] [address] [place] [address] [id number] [place] [address] 27067- 1866 14 Feb, 2015 [facility] [address] 53068- 1586 08 Jan, 2015 Hip pain, right 719.45 and Somatic dysfunction of pelvic region 739.5 [facility] [address] [place] [id number] [place] [address] 54781- 0876 Nov, [facility] [address] [place] [address] [id number] [place] [address] [id number]- 0401 Nov, [facility] [address] [place] [address] [id number] [place] [address] 13663- 4156 Aug, [facility] [address] [place] [address] [id number] [place] [address] 962845- 2626 Aug, [facility] [address] [place] [address] [id number] [place] [address] 593996- 1431 Aug, [facility] [address] [address] [id number] [place] [address] 88378- 2336 Aug, [facility] [address] [place] [address] [id number] [place] [address] 70412- 9456 May, [facility] [address] [place] [address] [id number] [place] [address] 04769- 4216 May, [facility] [address] [place] [id number] [place] [address] 50758- 9226 May, [facility] [place] [facility] [address] [id number] [place] [address]- 8976 14 May, 2014 [facility] [place] [facility] [address] [id number] [place] [address]- 4121 May, [facility] [place] [facility] [address] [id number] [place] [address]- 8968 May, [facility] [place] [facility] [address] [id number] [place] [address]- 6465 Jan, [facility] [place] [facility] [address] [id number] [place] [address]- 3400 Jan, [facility] [place] [facility] [address] [id number] [place] [address]- 6582 Jan, [facility] [place] [facility] [address] [id number] [place] [address]- 2079 Jan, [facility] [place] [facility] [address] [id number] [place] [address]- 5624 Jan, [facility] [place] [facility] [address] [id number] [place] [address]- 0065 Nov, [facility] [place] [facility] [address] [id number] [place] [address]- 6788 Nov, [facility] [place] [facility] [address] [id number] [place] [address]- 8863 Nov, [facility] [place] [facility] [address] [id number] [place] [address]- 4450 Nov, [facility] [place] [facility] [address] [id number] [place] [address]- 3557 Nov, [facility] [place] [facility] [address] [id number] [place] [address]- 3202 Nov, [facility] [place] [facility] [address] [id number] [place] [address]- 3636 Nov, [facility] [place] [facility] [address] [id number] [place] [address]- 9541 Nov, [facility] [place] [facility] [address] [id number] [place] [address]- 4864 Nov, [facility] [place] [facility] [address] [id number] [place] [address]- 5955 Nov, [facility] [place] [facility] [address] [facility] [id number] [place] [address]- 4258 Nov, [facility] [place] [facility] [address] [id number] [place] [address]- 1318 Nov, [facility] [place] [facility] [address] [id number] [place] [address]- 8275 Oct, [facility] [place] [facility] [address] [facility] [id number] [place] [address]- 9325 Oct, [facility] [place] [facility] [address] [facility] [id number] [place] [address]- 2936 Oct, [facility] [place] [facility] [address] [id number] [place] [address]- 8100 Oct, [facility] [place] [facility] [address] [facility] [id number] [place] [address]- 4286 Sep, [facility] [place] [facility] [address] [facility] [id number] [place] [address]- 4376 Sep, [facility] [place] [facility] [address] [id number] [place] [address]- 5761 Sep, [facility] [place] [facility] [address] [facility] [id number] [place] [address]- 9665 Sep, [facility] [place] [facility] [address] [facility] [id number] [place] [address]- 6180 Sep, [facility] [place] [facility] [address] [facility] [id number] [place] [address]- 6462 Sep, [facility] [place] [facility] [address] [facility] [id number] [place] [address]- 3807 Sep, [facility] [place] [facility] [address] [id number] [place] [address]- 8482 Sep, [facility] [place] [facility] [address] [id number] [place] [address]- 4776 Aug, [facility] [place] [facility] [address] [id number] [place] [address]- 0468 Aug, [facility] [place] [facility] [address] [id number] [place] [address]- 0825 Aug, [facility] [place] [facility] [address] [id number] [place] [address]- 9084 Aug, [facility] [place] [facility] [address] [id number] [place] [address]- 4406 Aug, [facility] [place] [facility] [address] [id number] [place] [address]- 6144 Aug, [facility] [place] [facility] [address] [id number] [place] [address]- 2089 Jul, [facility] [place] [facility] [address] [id number] [place] [address]- 2542 Jul, [facility] [place] [facility] [address] [id number] [place] [address]- 6326 Jun, [facility] [place] [facility] [address] [id number] [place] [address]- 0047 Jun, [facility] [place] [facility] [address] [id number] [place] [address]- 0892 Jun, [facility] [place] [facility] [address] [id number] [place] [address]- 4507 Jun, [facility] [place] [facility] [address] [id number] [place] [address]- 8343 Jun, [facility] [place] [facility] [address] [id number] [place] [address]- 1462 Jun, [facility] [place] [facility] [address] [id number] [place] [address]- 5037 Jun, [facility] [address] [id number] [address]- 0626 May, [facility] [address] [facility] [id number]- 0038 May, [facility] [address] 0826 May, [facility] [address] [facility] [id number] 9713 May, [facility] [address] [facility] [id number], [place] [address]- 6221 May, [facility] [address] 5356 May, [facility] [address] 9187 May, [facility] [address], [place] [address]- 2330 May, [facility] [address], [place] [address]- 6327 May, [facility] [address], [place] [address]- 8164 Apr, IMMUNIZATIONS No Known Immunizations SOCIAL HISTORY Never Assessed REASON FOR VISIT #19 do PLAN OF CARE Activity Details Follow Up prn Reason:Recall VITAL SIGNS MEDICATIONS Medication Instructions Dosage Frequency Start Date End Date Duration Status Tylenol 1 tab Active Mirena Active Ibuprofen 200 MG Orally every 6 hrs 1 tablet with food or milk as needed 6h Active RESULTS No Results PROCEDURES Procedure Date Ordered Result Body Site RESIN COMPOS - 2 SURFACES POSTERIOR January 25, 2018 Billing Notes on claim January 25, 2018 [facility] Employee/Board adjustment January 25, 2018 INSTRUCTIONS MEDICATIONS ADMINISTERED No Known Medications MEDICAL (GENERAL) HISTORY Type Description Date Medical History no surgeries or serious illness Medical History IUD (intrauterine device) in place Surgical History surgical extraction of 3rd molars 08/2001
--- OUTSIDE RECORDS SUMMARY | 2018-07-16 10:46 | XMS REPORT ---
Author Author ROBERT TREJO [facility] Address [address] [place] [address] Care Team Providers Care Political Researcher Name Role Phone ROBERT TREJO Unavailable PROBLEMS Type Condition ICD9-CM Code LLK91-TC Code Onset Dates Condition Status SNOMED Code Problem Breast lump N63 Active 44775683 Problem IUD (intrauterine device) in place Z97.5 Active 258630852 ALLERGIES No Known Allergies ENCOUNTERS Encounter Location Date Diagnosis [place] [address] [address]- 4100 Feb, RUQ abdominal pain R10.11 [place] [address] 73276- 4825 Feb, RUQ abdominal pain R10.11 ; Cervical cancer screening Z12.4 ; Rectal bleeding K62.5 and Epidermal inclusion cyst L72.0 [facility] [address] [id number] Jan, Dental examination Z01.20 [place] [address] [place] [id number] [place] [address] 58411- 4682 Jan, [facility] [address] [place] [id number] [place] [address] 49790- 8164 December, Rectal bleeding K62.5 ; Internal hemorrhoid, bleeding K64.8 and Generalized abdominal pain R10.84 [place] [address] 92499- 8628 Oct, Encounter for dental examination and cleaning without abnormal findings Z01.20 and Dental examination Z01.20 [facility] [address] [place] [id number] [place] [address] 00002- 5424 Sep, Dental examination Z01.20 [place] [address] [place] [id number] [place] [address] 41027- 9914 07 Sep, 2017 Right hip pain M25.551 [facility] [address] 64866- 0626 Aug, Right hip pain M25.551 [facility] [address] 19585- 0238 May, Encounter for immunization Z23 [facility] [address] 56420- 7578 Mar, Well adult exam Z00.00 and Lymphadenopathy of right cervical region R59.0 [place] [address] 72830- 6035 Mar, Lymphadenopathy of right cervical region R59.0 [facility] [address] 26552- 0892 Jan, Well adult exam Z00.00 [facility] [address] 19995- 5486 Jan, Acute non-recurrent maxillary sinusitis J01.00 [facility] [address] 51044- 2648 Aug, [facility] [address] 76081- 0830 Aug, Breast lump N63 [facility] [address] [place] [id number] [place] [address] 34869- 2826 Aug, Dental examination Z01.20 [facility] [address] [place] [id number] [place] [address] 42302- 1479 14 May, 2016 Encounter for immunization Z23 [facility] [address] 48406- 5322 December, Encounter for gynecological examination without abnormal finding Z01.419 and IUD (intrauterine device) in place Z97.5 [facility] [address] [id number] Oct, Encounter for dental examination Z01.20 [facility] [address] [place] [id number] [place] [address] 705709- 2609 29 Apr, 2015 Influenza vaccine administered V04.81 [facility] [address] [place] [id number] [id number] 14 Apr, 2015 Encounter for dental examination V72.2 [facility] [address] [place] [id number] [place] [address] 620945- 7311 14 Feb, 2015 [facility] [address] [place] [id number] [place] [address] 349668- 7531 Jan, Hip pain, right 719.45 and Somatic dysfunction of pelvic region 739.5 [facility] [address] [place] [id number] [place] [address] 966772- 6701 Nov, [facility] [address] [place] [id number] [place] [address] 15845- 4157 Nov, [facility] [address] [place] [id number] [place] [address] 68984- 7349 Aug, [facility] [address] [place] [id number] [place] [address] 20602- 8025 Aug, [facility] [address] [place] [id number] [place] [address] 25291- 5558 Aug, [facility] [address] [place] [id number] [place] [address] 52056- 8877 Aug, [facility] [address] [place] [address] 312990- 6868 May, [facility] [address] [place] [id number] [place] [address] 74914- 5204 May, [facility] [address] [id number]- 0296 May, [facility] [address] [place] [id number] [place] [address] 875395- 4436 May, [facility] [place] [facility] [address] [id number] [place] [address]- 7655 May, [facility] [place] [facility] [address] [id number] [place] [address]- 3102 May, [facility] [place] [facility] [address] [id number] [place] [address]- 7872 Jan, [facility] [place] [facility] [address] [id number] [place] [address]- 9864 Jan, [facility] [place] [facility] [address] [id number] [place] [address]- 4277 Jan, [facility] [place] [facility] [address] [id number] [place] [address]- 4994 Jan, [facility] [place] [facility] [address] [id number] [place] [address]- 8437 Jan, [facility] [place] [facility] [address] [id number] [place] [address]- 2834 Nov, [facility] [place] [facility] [address] [id number] [place] [address]- 1421 Nov, [facility] [place] [facility] [address] [id number] [place] [address]- 0100 Nov, [facility] [place] [facility] [address] [id number] [place] [address]- 4676 Nov, [facility] [place] [facility] [address] [id number] [address]- 3641 Nov, [facility] [place] [facility] [address] [id number] [place] [address]- 4382 Nov, [facility] [place] [facility] [address] [id number] [place] [address]- 1987 Nov, [facility] [place] [facility] [address] [id number] [place] [address]- 5310 Nov, [facility] [place] [facility] [address] [id number] [address]- 6342 Nov, [facility] [place] [facility] [address] [id number] [place] [address]- 5965 Nov, [facility] [place] [facility] [address] [facility] [id number] [place] [address]- 7873 Nov, [facility] [place] [facility] [address] [facility] [id number] [place] [address]- 4320 Nov, [facility] [place] [facility] [address] [facility] [id number] [place] [address]- 2836 Oct, [facility] [place] [facility] [address] [facility] [id number] [place] [address]- 6626 Oct, [facility] [place] [facility] [address] [facility] [id number] [place] [address]- 9094 Oct, [facility] [place] [facility] [address] [place] [id number] [address]- 1602 Oct, [facility] [place] [facility] [address] [facility] [id number] [place] [address]- 6186 Sep, [facility] [place] [facility] [address] [place] [id number] [place] [address]- 4662 Sep, [facility] [place] [facility] [address] [place] [address] [id number] [place] [address]- 0637 Sep, [facility] [place] [facility] [address] [place] [id number] [place] [address]- 1018 Sep, [facility] [place] [facility] [address] [facility] [id number], [place] [address]- 8919 Sep, [facility] [place] [facility] [address] [facility] [id number] [place] [address]- 8534 Sep, [facility] [place] [facility] [address] [facility] [id number] [place] [address]- 9706 Sep, [facility] [place] [facility] [address] [place] [id number] [place] [address]- 4339 Sep, [facility] [place] [facility] [address] [id number] [place] [address]- 2190 Aug, [facility] [place] [facility] [address] [id number] [place] [address]- 0234 Aug, [facility] [place] [facility] [address] [id number] [place] [address]- 8851 Aug, [facility] [place] [facility] [address] [id number] [place] [address]- 1206 Aug, [facility] [place] [facility] [address] [id number] [place] [address]- 1533 Aug, [facility] [place] [facility] [address] [id number] [place] [address]- 8178 Aug, [facility] [place] [facility] [address] [id number] [place] [address]- 3691 Jul, [facility] [place] [facility] [address] [id number], [place] [address]- 5764 Jul, [facility] [place] [facility] [address] [id number] [place] [address]- 5991 Jun, [facility] [place] [facility] [address] [id number], [place] [address]- 7085 Jun, [facility] [place] [facility] [address] [id number], [place] [address]- 9263 Jun, [facility] [place] [facility] [address] [id number], [place] [address]- 2244 Jun, [facility] [place] [facility] [address] [id number] [place] [address]- 3378 Jun, [facility] [place] [facility] [address] [id number], [place] [address]- 3591 Jun, [facility] [place] [facility] [address] [id number], [place] [address]- 1170 Jun, [facility] [place] [facility] [address] [id number][place] [address]- 0266 May, [facility] [address], [place] [address]- 0967 May, [facility] [address]- 9452 May, [facility] [address], [place] [address]- 3273 May, [facility] [address] 68[address] May, [facility] [id number] [place] [id number] May, [facility] [id number] [address] May, [facility] [id number] [address] May, [facility] [id number] [address] May, [facility] [id number] [place] [address] Apr, IMMUNIZATIONS No Known Immunizations SOCIAL HISTORY Never Assessed REASON FOR VISIT Dental Hygiene/Fluoride Varnish PLAN OF CARE Activity Details Follow Up prn Reason:dental exam VITAL SIGNS MEDICATIONS Medication Instructions Dosage Frequency Start Date End Date Duration Status Tylenol 1 tab Active Mirena Active Ibuprofen 200 MG Orally every 6 hrs 1 tablet with food or milk as needed 6h Active RESULTS No Results PROCEDURES Procedure Date Ordered Result Body Site BITEWINGS - FOUR FILMS Oct 01, 2017 PROPHYLAXIS - ADULT Oct 01, 2017 Billing Notes on claim Oct 01, 2017 TOPICAL FLUORIDE VARNISH Oct 01, 2017 [facility] Employee/Board adjustment Oct 01, 2017 INSTRUCTIONS MEDICATIONS ADMINISTERED No Known Medications MEDICAL (GENERAL) HISTORY Type Description Date Medical History no surgeries or serious illness Medical History IUD (intrauterine device) in place Surgical History surgical extraction of 3rd molars 08/2001
--- OUTSIDE RECORDS SUMMARY | 2018-07-16 10:46 | XMS REPORT ---
Author Author loydCARLOS Presley [facility] Address [address] [place] [address] Care Team Providers Care Due Diligence Coordinator Name Role Phone CARLOS Morales Unavailable PROBLEMS Type Condition ICD9-CM Code [id number] Code Onset Dates Condition Status SNOMED Code Problem Breast lump N63 Active [id number] Problem IUD (intrauterine device) in place Z97.5 Active 380279458 ALLERGIES No Known Allergies ENCOUNTERS Encounter Location Date Diagnosis [facility] [id number] [place] [address] 66648- 8091 Feb, RUQ abdominal pain R10.11 [facility] [facility] [address] [address]- [address]89 Feb, RUQ abdominal pain R10.11 ; Cervical cancer screening Z12.4 ; Rectal bleeding K62.5 and Epidermal inclusion cyst L72.0 [facility] [id number] [place] [address] [id number] Jan, Dental examination Z01.20 [place] [facility] [id number] [place] [address] 52515- 0730 Jan, [facility] [facility] [id number] [place] [address] 13860- 8481 December, Rectal bleeding K62.5 ; Internal hemorrhoid, bleeding K64.8 and Generalized abdominal pain R10.84 [place] [address] [address]- 6474 Oct, Encounter for dental examination and cleaning without abnormal findings Z01.20 and Dental examination Z01.20 [place] [id number] [place] [address] 05229- 5614 Sep, Dental examination Z01.20 [facility] [id number] [place] [address] 19494- 5851 07 Sep, 2017 Right hip pain M25.551 [facility] [id number] [place] [address] 34989- 9464 Aug, Right hip pain M25.551 [facility] [address] 76368- 3404 May, Encounter for immunization Z23 [facility] [id number] [place] [address] 56197- 0535 Mar, Well adult exam Z00.00 and Lymphadenopathy of right cervical region R59.0 [facility] [id number] [place] [address] 70005- 3829 Mar, Lymphadenopathy of right cervical region R59.0 [facility] [address] 21472- 6143 Jan, Well adult exam Z00.00 [facility] [id number] [place] [address] 45381- 2764 Jan, Acute non-recurrent maxillary sinusitis J01.00 [facility] [id number] [place] [address] 97756- 7748 Aug, [facility] [id number] [place] [address] 30524- 1508 Aug, Breast lump N63 [facility] [id number] [place] [address] 97094- 6550 Aug, Dental examination Z01.20 [facility] [id number] [place] [address] 71502- 0572 14 May, 2016 Encounter for immunization Z23 [facility] [id number] [place] [address] 80050- 3345 December, Encounter for gynecological examination without abnormal finding Z01.419 and IUD (intrauterine device) in place Z97.5 [facility] [address] [id number] 21 Oct, 2015 Encounter for dental examination Z01.20 [facility] [id number] [place] [address] 25505- 8676 29 Apr, 2015 Influenza vaccine administered V04.81 [facility] [id number] [place] [address] [id number] 14 Apr, 2015 Encounter for dental examination V72.2 [facility] [id number] [place] [address] 71306- 7954 14 Feb, 2015 [facility] [id number] [place] [address] 77481- 4813 Jan, Hip pain, right 719.45 and Somatic dysfunction of pelvic region 739.5 [facility] [id number] [place] [address] 68900- 0930 Nov, [facility] [id number] [place] [address] [id number] 7882 Nov, [facility] [id number] [place] [address] 23189- 1945 Aug, [facility] [id number] [place] [address] 286797- 2015 Aug, [facility] [id number] [place] [address] 03916- 0186 Aug, [facility] [id number] [place] [address] [id number]- 4496 Aug, [facility] [id number] [place] [address] 710324- 5072 May, [facility] [id number] [place] [address] 012146- 3306 May, [facility] [id number] [place] [address] 39361- 8233 May, [facility] [id number] [place] [address] 22729- 6484 14 May, 2014 [facility] [place] [facility] [address] [id number] [place] [address]- 0118 May, [facility] [place] [facility] [address] [id number] [place] [address] May, [facility] [place] [facility] [address] [id number] [place] [address]- 0159 Jan, [facility] [place] [facility] [address] [id number] [place] [address]- 6395 Jan, [facility] [place] [facility] [address] [id number] [place] [address]- 1909 Jan, [facility] [place] [facility] [address] [id number] [place] [address]- 2100 Jan, [facility] [place] [facility] [address] [id number] [place] [address]- 2484 Jan, [facility] [place] [facility] [address] [id number] [place] [address]- 3718 Nov, [facility] [place] [facility] [address] [id number] [place] [address]- 6652 Nov, [facility] [place] [facility] [address] [id number] [place] [address]- 9986 Nov, [facility] [place] [facility] [address] [id number] [place] [address]- 3260 Nov, [facility] [place] [facility] [address] [id number] [place] [address]- 8812 Nov, [facility] [place] [facility] [address] [id number] [place] [address]- 6836 Nov, [facility] [place] [facility] [address] [id number] [place] [address]- 7538 Nov, [facility] [place] [facility] [address] [id number] [place] [address]- 0022 Nov, [facility] [place] [facility] [address] [id number] [place] [address]- 7134 Nov, [facility] [place] [facility] [address] [id number] [place] [address]- 8867 Nov, [facility] [place] [facility] [address] [id number] [place] [address]- 2384 Nov, [facility] [place] [facility] [address] [id number] [place] [address]- 7841 Nov, [facility] [place] [facility] [address] [id number] [place] [address]- 9406 Oct, [facility] [place] [facility] [address] [id number] [place] [address]- 1179 Oct, [facility] [place] [facility] [address] [facility] [id number] [place] [address]- 5360 Oct, [facility] [place] [facility] [address] [id number] [place] [address]- 6157 Oct, [facility] [place] [facility] [address] [id number] [place] [address]- 2735 Sep, [facility] [place] [facility] [address] [id number] [place] [address]- 3488 Sep, [facility] [place] [facility] [address] [facility] [id number] [place] [address]- 7762 Sep, [facility] [place] [facility] [address] [id number] [place] [address]- 9592 Sep, [facility] [place] [facility] [address] [id number] [place] [address]- 6834 Sep, [facility] [place] [facility] [address] [id number] [place] [address]- 8395 Sep, [facility] [place] [facility] [address] [id number] [place] [address]- 4680 Sep, [facility] [place] [facility] [address] [facility] [id number] [place] [address]- 3521 Sep, [facility] [place] [facility] [address] [id number] [place] [address]- 0299 Aug, [facility] [place] [facility] [address] [id number] [place] [address]- 9685 Aug, [facility] [place] [facility] [address] [id number] [place] [address]- 4529 Aug, [facility] [place] [facility] [address] [id number] [place] [address]- 9316 Aug, [facility] [place] [facility] [address] [id number] [place] [address]- 1168 Aug, [facility] [place] [facility] [address] [id number] [place] [address]- 6391 Aug, [facility] [place] [facility] [address] [id number] [place] [address]- 4098 Jul, [facility] [place] [facility] [address] [id number] [place] [address]- 7952 Jul, [facility] [place] [facility] [address] [id number] [place] [address]- 2465 Jun, [facility] [place] [facility] [address] [id number] [place] [address]- 0965 Jun, [facility] [place] [facility] [address] [id number] [address]- 5805 Jun, [facility] [place] [facility] [address] [id number] [address]- 9244 Jun, [facility] [place] [facility] [address] [id number] [place] [address]- 9777 Jun, [facility] [place] [facility] [address] [id number] [place] [address]- 5278 Jun, [facility] [place] [facility] [address] [id number] [place] [address]- 5715 Jun, [facility] [place] [facility] [address] [facility] [id number] [address]- 4560 May, [facility] [address] [facility] [id number] [address]- 3803 May, [facility] [address] [facility] [id number] [place] [id number] [address] May, [facility] [address] [facility] [id number] [address]- 0218 May, [facility] [address] [facility] [id number] [address]- 6397 May, [facility] [address] [facility] [id number] 1174 May, [facility] [address] [address]- 4043 May, [facility] [address] [address]- 7469 May, [facility] [address] [address]- 8418 May, [facility] [address] [address]- 0555 Apr, IMMUNIZATIONS No Known Immunizations SOCIAL HISTORY Never Assessed REASON FOR VISIT Dental Examination PLAN OF CARE Activity Details Follow Up ALEXANDRE Reason:Anabaptist #19 DO VITAL SIGNS MEDICATIONS Medication Instructions Dosage Frequency Start Date End Date Duration Status Tylenol 1 tab Active Mirena Active Ibuprofen 200 MG Orally every 6 hrs 1 tablet with food or milk as needed 6h Active RESULTS No Results PROCEDURES Procedure Date Ordered Result Body Site PERIODIC ORAL EXAMINATION October 25, 2017 DENTAL WATCH TOOTH October 25, 2017 [facility] Employee/Board adjustment October 25, 2017 Billing Notes on claim October 25, 2017 INSTRUCTIONS MEDICATIONS ADMINISTERED No Known Medications MEDICAL (GENERAL) HISTORY Type Description Date Medical History no surgeries or serious illness Medical History IUD (intrauterine device) in place Surgical History surgical extraction of 3rd molars 08/2001
--- OUTSIDE RECORDS SUMMARY | 2018-07-16 10:46 | XMS REPORT ---
Author Author CLAUS CUETO [facility] [employer] Address Unknown Phone Unavailable Care Team Providers Care Conservator Artifacts Name Role Phone CLAUS CUETO CP Unavailable Allergies No Known Allergies Problems Problem Type Condition Code Onset Dates Condition Status Assessment Encounter for immunization Z23 Active Problem IUD (intrauterine device) in place Z97.5 Active Medications No Known Medications Procedures Procedure Coding System Code Date SINGLE IMMUNIZATION ADMIN CPT-4 86746 May 19, 2016 FLUARIX QUAD P-FREE 3 AND UP .50 2015 CPT-4 40101 May 19, 2016 Results No Known Results Immunizations Vaccine Administration Date FLUARIX QUAD P-FREE 3 AND UP .50 2015May 19, 2016 Summary Purpose [employer] Submission
--- OUTSIDE RECORDS SUMMARY | 2018-07-16 10:46 | XMS REPORT ---
Author QI Vasquez Organization [employer] Address Unknown Phone Unavailable Care Team Providers Care Center Medical Director Name Role Phone QI MARCOS CP Unavailable Allergies No Known Allergies Problems Problem Type Condition Code Onset Dates Condition Status Problem IUD (intrauterine device) in place V45.51 Active Assessment Encounter for dental examination V72.2 Active Problem Lump or mass in breast 611.72 Active Medications No Known Medications Procedures Procedure Coding System Code Date INTRAORL-PERIAPICAL 1 FILM 81038 CPT-4 D0220 Apr 19, 2015 INTRAORL-PERIAPICAL EA ADD FILM CPT-4 D0230 Apr 19, 2015 PERIODIC ORAL EXAMINATION CPT-4 D0120 Apr 19, 2015 Billing Notes on claim CPT-4 EC109 Apr 19, 2015 [facility] Employee/Board adjustment CPT-4 [facility] Apr 19, 2015 BITEWINGS - FOUR FILMS CPT-4 D0274 Apr 19, 2015 INTRAORL-PERIAPICAL EA ADD FILM CPT-4 D0230 Apr 19, 2015 TOPICAL FLUORIDE VARNISH CPT-4 D1206 Apr 19, 2015 PROPHYLAXIS - ADULT CPT-4 D1110 Apr 19, 2015 Vital Signs Date/Time: Apr 19, 2015 Blood Pressure Diastolic 67 mmHg Blood Pressure Systolic 96 mmHg Cardiac Monitoring Heart Rate 67 bpm Results No Known Results Summary Purpose [employer] Submission
--- OUTSIDE RECORDS SUMMARY | 2018-07-16 10:46 | XMS REPORT ---
Author Author CLAUS CUETO [facility] Address [address] [place] [address] Care Team Providers Care Commercial Parts Professional Name Role Phone CLAUS CUETO Unavailable PROBLEMS Type Condition ICD9-CM Code ZAV19-CZ Code Onset Dates Condition Status SNOMED Code Problem Breast lump N63 Active 20693420 Problem IUD (intrauterine device) in place Z97.5 Active 270953337 Problem Calculus of gallbladder without cholecystitis without obstruction K80.20 Active 574928202 ALLERGIES No Known Allergies ENCOUNTERS Encounter Location Date Diagnosis [place] [address] [address] Feb, RUQ abdominal pain R10.11 [place] [address] [address]- [address] Feb, RUQ abdominal pain R10.11 ; Cervical cancer screening Z12.4 ; Rectal bleeding K62.5 and Epidermal inclusion cyst L72.0 [facility] [id number] [place] [id number] Jan, Dental examination Z01.20 [place] [address] [place] [id number] [place] [address] 16631- 5407 Jan, [facility] [address] [place] [id number] [place] [address] 95795- 9487 December, Rectal bleeding K62.5 ; Internal hemorrhoid, bleeding K64.8 and Generalized abdominal pain R10.84 [place] [address] [place] [id number] [place] [address] 29188- 3482 Oct, Encounter for dental examination and cleaning without abnormal findings Z01.20 and Dental examination Z01.20 [facility] [id number] [place] [address] 40964- 2727 Sep, Dental examination Z01.20 [facility] [id number] [place] [address] 43739- 3968 07 Sep, 2017 Right hip pain M25.551 [facility] [id number] [place] [address] 53155- 4105 Aug, Right hip pain M25.551 [facility] [address] 02829- 9868 May, Encounter for immunization Z23 [facility] [id number] [place] [address] 87969- 8645 Mar, Well adult exam Z00.00 and Lymphadenopathy of right cervical region R59.0 [facility] [address] [place] [id number] [place] [address] 39712- 4931 Mar, Lymphadenopathy of right cervical region R59.0 [facility] [address] [id number] [place] [address] 93842- 2718 Jan, Well adult exam Z00.00 [facility] [id number] [place] [address] 93157- 6655 Jan, Acute non-recurrent maxillary sinusitis J01.00 [facility] [id number] [place] [address] 89507- 8630 Aug, [facility] [id number] [place] [address] 02338- 6616 Aug, Breast lump N63 [facility] [id number] [place] [address] 53853- 3971 Aug, Dental examination Z01.20 [facility] [id number] [place] [address] 57812- 1567 14 May, 2016 Encounter for immunization Z23 [facility] [id number] [place] [address] 82790- 6441 December, Encounter for gynecological examination without abnormal finding Z01.419 and IUD (intrauterine device) in place Z97.5 [facility] [address] [id number] 21 Oct, 2015 Encounter for dental examination Z01.20 [facility] [address] [id number] [place] [address] 49100- 4396 29 Apr, 2015 Influenza vaccine administered V04.81 [facility] [address] [id number] 14 Apr, 2015 Encounter for dental examination V72.2 [facility] [address] [id number] [place] [address] 01738- 9866 14 Feb, 2015 [facility] [address] [id number] [place] [address] 46037- 1126 08 Jan, 2015 Hip pain, right 719.45 and Somatic dysfunction of pelvic region 739.5 [facility] [address] [place] [address] 14025- 7784 Nov, [facility] [address] [id number] [place] [address] 40480180- 7436 Nov, [facility] [id number] [place] [address] 486110- 3290 Aug, [facility] [address] [place] [address] [id number]- 8911 Aug, [facility] [address] 0153 Aug, [facility] [address] [place] [id number] [place] [address] [id number]- 3432 Aug, [facility] [address] 2367 May, [facility] [address] [place] [address] 85581- 5526 May, [facility] [address] 0459 May, [facility] [address] [place] [id number] [address]- 3819 14 May, 2014 [facility] [address] [id number] [place] [address]- 0252 May, [facility] [place] [facility] [address] [id number] [place] [address]- 9682 May, [facility] [address] [id number] [place] [address]- 4221 Jan, [facility] [place] [facility] [address] [id number] [place] [address]- 8948 Jan, [facility] [place] [facility] [address] [id number] [place] [address]- 9447 Jan, [facility] [place] [facility] [address] [id number] [place] [address]- 2877 Jan, [facility] [place] [facility] [address] [id number] [place] [address]- 5023 Jan, [facility] [place] [facility] [address] [id number] [place] [address]- 7063 Nov, [facility] [place] [facility] [address] [id number] [place] [address]- 5168 Nov, [facility] [place] [facility] [address] [id number] [place] [address]- 9484 Nov, [facility] [place] [facility] [address] [id number] [place] [address]- 2593 Nov, [facility] [place] [facility] [address] [id number] [place] [address]- 2473 Nov, [facility] [place] [facility] [address] [id number] [place] [address]- 8723 Nov, [facility] [place] [facility] [address] [id number] [place] [address]- 1570 Nov, [facility] [place] [facility] [address] [id number] [place] [address]- 9216 Nov, [facility] [place] [facility] [address] [id number] [place] [address]- 5393 Nov, [facility] [place] [facility] [address] [id number] [place] [address]- 1724 Nov, [facility] [place] [facility] [address] [id number] [place] [address]- 7452 Nov, [facility] [place] [facility] [address] [id number] [place] [address]- 8607 Nov, [facility] [place] [facility] [address] [id number] [place] [address]- 3897 Oct, [facility] [place] [facility] [address] [id number] [place] [address]- 8146 Oct, [facility] [place] [facility] [address] [id number] [place] [address]- 8775 Oct, [facility] [place] [facility] [address] [id number] [place] [address]- 6811 Oct, [facility] [place] [facility] [address] [id number] [place] [address]- 8830 Sep, [facility] [place] [facility] [address] [id number] [place] [address]- 7454 Sep, [facility] [place] [facility] [address] [id number] [place] [address]- 9581 Sep, [facility] [place] [facility] [address] [id number] [place] [address]- 9794 Sep, [facility] [place] [facility] [address] [id number] [place] [address]- 7698 Sep, [facility] [place] [facility] [address] [id number] [place] [address]- 2090 Sep, [facility] [place] [facility] [address] [facility] [id number] [place] [address]- 0140 Sep, [facility] [place] [facility] [address] [id number] [place] [address]- 8484 Sep, [facility] [address] [id number] [place] [address]- 8148 Aug, [facility] [address] [id number] [place] [address]- 3560 Aug, [facility] [address] [id number] [place] [address]- 5105 Aug, [facility] [address] [id number] [place] [address]- 6977 Aug, [facility] [address] [id number] [place] [address]- 7803 Aug, [facility] [address] [id number] [place] [address]- 6799 Aug, [facility] [address] [id number] [place] [address]- 1753 Jul, [facility] [address] [id number] [place] [address]- 3896 Jul, [facility] [address] [id number] [place] [address]- 9060 Jun, [facility] [address] [id number] [place] [address]- 1255 Jun, [facility] [place] [facility] [address] [id number] [place] [address]- 2120 Jun, [facility] [address] [id number] [place] [address]- 7963 Jun, [facility] [place] [facility] [address] [id number] [place] [address]- 8196 Jun, [facility] [place] [facility] [address] [id number] [place] [address]- 5840 Jun, [facility] [address] [id number] [place] [address]- 3334 Jun, [facility] [address] [place] [id number] [address]- 6527 May, [facility] [address], [place] [address]- 8086 May, [facility] [address], [place] [address]- 6519 May, [facility] [address], [place] [address]- 4416 May, [facility] [address], [place] [address]- 5567 May, [facility] [address], [place] [address]- 4460 May, [facility] [address], [place] [address]- 5635 May, [facility] [address], [place] [address]- 9980 May, [facility] [address], [place] [address]- 7200 May, [facility] [address], [place] [address]- 3592 Apr, IMMUNIZATIONS No Known Immunizations SOCIAL HISTORY Never Assessed REASON FOR VISIT hematochezia--tcuppettRN PLAN OF CARE Activity Details Follow Up prn Reason: VITAL SIGNS Height 62 in 2017-12-04 Weight 130.5 lbs 2017-12-04 Temperature 98.3 degrees Fahrenheit 2017-12-04 Heart Rate 64 bpm 2017-12-04 Respiratory Rate 18 2017-12-04 BMI 23.87 kg/m2 2017-12-04 Blood pressure systolic 108 mmHg 2017-12-04 Blood pressure diastolic 70 mmHg 2017-12-04 MEDICATIONS Medication Instructions Dosage Frequency Start Date End Date Duration Status Mirena Active Tylenol 1 tab Active Ibuprofen 200 MG Orally every 6 hrs 1 tablet with food or milk as needed 6h Active RESULTS No Results PROCEDURES No Known procedures INSTRUCTIONS MEDICATIONS ADMINISTERED No Known Medications MEDICAL (GENERAL) HISTORY Type Description Date Medical History no surgeries or serious illness Medical History IUD (intrauterine device) in place Surgical History surgical extraction of 3rd molars 08/2001
--- OUTSIDE RECORDS SUMMARY | 2018-07-16 10:46 | XMS REPORT ---
Author Author CLAUS CUETO [facility] Address [address] [place] [address] Care Team Providers Care Standpipe Tender Name Role Phone CLUAS CUETO Unavailable PROBLEMS Type Condition ICD9-CM Code TRX11-MO Code Onset Dates Condition Status SNOMED Code Problem Breast lump N63 Active 16985993 Problem IUD (intrauterine device) in place Z97.5 Active 212796605 ALLERGIES Unknown Allergies SOCIAL HISTORY No smoking Hx information available PLAN OF CARE VITAL SIGNS MEDICATIONS Unknown Medications RESULTS No Results PROCEDURES No Known procedures IMMUNIZATIONS No Known Immunizations
--- OUTSIDE RECORDS SUMMARY | 2018-07-16 10:46 | XMS REPORT ---
Author Author CLAUS CUETO [facility] Address [address] [place] [address] Care Team Providers Care Commercial Ocean Clammer Name Role Phone CLAUS CUETO Unavailable PROBLEMS Type Condition ICD9-CM Code EVP60-OV Code Onset Dates Condition Status SNOMED Code Problem Breast lump N63 Active 63598346 Problem IUD (intrauterine device) in place Z97.5 Active 648947972 ALLERGIES No Information ENCOUNTERS Encounter Location Date Diagnosis [facility] [address] [id number] Jan, Dental examination Z01.20 [place] [address] [address]- 8927 Jan, [place] [address] 61686- 7659 December, Rectal bleeding K62.5 ; Internal hemorrhoid, bleeding K64.8 and Generalized abdominal pain R10.84 [place] [address] [place] [id number] [place] [address] 11426- 5584 Oct, Encounter for dental examination and cleaning without abnormal findings Z01.20 and Dental examination Z01.20 [place] [address] [place] [id number] [place] [address] 18777- 1230 Sep, Dental examination Z01.20 [place] [address] [address] [id number] [place] [address] 16378- 7776 Sep, Right hip pain M25.551 [place] [address] 69156- 0592 Aug, Right hip pain M25.551 [place] [address] 21262- 3765 May, Encounter for immunization Z23 [facility] [address] [place] [address] 02935- 0167 Mar, Well adult exam Z00.00 and Lymphadenopathy of right cervical region R59.0 [facility] [address] [id number] [place] [address] 84153- 1717 Mar, Lymphadenopathy of right cervical region R59.0 [facility] [id number] [place] [address] 34517- 1905 Jan, Well adult exam Z00.00 [facility] [address] [place] [id number] [place] [address] 24483- 8405 Jan, Acute non-recurrent maxillary sinusitis J01.00 [facility] [id number] [place] [address] 53444- 8530 Aug, [facility] [id number] [place] [address] 75595- 1890 Aug, Breast lump N63 [facility] [id number] [place] [address] 33128- 7299 Aug, Dental examination Z01.20 [facility] [id number] [place] [address] 30204- 9533 14 May, 2016 Encounter for immunization Z23 [facility] [id number] [place] [address] 00644- 0021 December, Encounter for gynecological examination without abnormal finding Z01.419 and IUD (intrauterine device) in place Z97.5 [facility] [address] [place] [id number] [place] [address] [id number] Oct, Encounter for dental examination Z01.20 [facility] [id number] [place] [address] 36490- 4726 29 Apr, 2015 Influenza vaccine administered V04.81 [facility] [address] [id number] [place] [address] [id number] 14 Apr, 2015 Encounter for dental examination V72.2 [place] [id number] [id number] [address]- 4658 Feb, [facility] [address] [facility] [id number] [place] [address] 63359- 5934 Jan, Hip pain, right 719.45 and Somatic dysfunction of pelvic region 739.5 [facility] [address] [facility] [id number] [place] [address]- 6230 14 Nov, 2014 [facility] [address] [id number], [place] [address]- 6892 Nov, [facility] [address] [facility] [id number] [place] [address], [place] [address]- 7408 Aug, [facility] [address] [facility] [id number] [place] [address] 07529- 7041 Aug, [facility] [address] [place] [address] 84748- 2310 Aug, [facility] [address] [facility] [id number][place] [address]- 1045 Aug, [facility] [address] [place] [address] [id number] [address]- 1582 May, [facility] [address] [address] [id number] [address]- 5569 May, [facility] [address] [facility] [id number], [place] [address]- 3865 May, [facility] [address] [facility] [id number] [address]- 2874 May, [facility] [address] [facility] [id number] [address]- 4373 May, [facility] [address] [facility] [id number] 7996 May, [facility] [address] [place] [address] [id number] [address]- 6399 Jan, [facility] [place] [facility] [address] [id number] [place] [address]- 2492 30 Jan, 2014 [facility] [place] [facility] [address] [id number] [place] [address]- 5386 Jan, [facility] [place] [facility] [address] [id number] [place] [address]- 0736 Jan, [facility] [place] [facility] [address] [id number] [place] [address]- 4543 Jan, [facility] [place] [facility] [address] [id number] [place] [address]- 0793 Nov, [facility] [place] [facility] [address] [id number] [place] [address]- 9479 Nov, [facility] [place] [facility] [address] [id number] [place] [address]- 3361 Nov, [facility] [place] [facility] [address] [id number] [place] [address]- 0145 Nov, [facility] [place] [facility] [address] [id number] [place] [address]- 9935 Nov, [facility] [place] [facility] [address] [id number] [place] [address]- 4545 Nov, [facility] [place] [facility] [address] [id number] [place] [address]- 0651 Nov, [facility] [place] [facility] [address] [id number] [place] [address]- 8794 Nov, [facility] [place] [facility] [address] [id number] [place] [address]- 5608 Nov, [facility] [place] [facility] [address] [id number] [place] [address]- 1859 Nov, [facility] [place] [facility] [address] [id number] [place] [address]- 1365 Nov, [facility] [place] [facility] [address] [id number] [place] [address]- 0224 Nov, [facility] [place] [facility] [address] [id number] [place] [address]- 6168 Oct, [facility] [place] [facility] [address] [id number] [place] [address]- 5486 Oct, [facility] [place] [facility] [address] [facility] [id number] [place] [address]- 0035 Oct, [facility] [place] [facility] [address] [id number] [place] [address]- 5784 Oct, [facility] [place] [facility] [address] [id number] [place] [address]- 8180 Sep, [facility] [place] [facility] [address] [id number] [place] [address]- 5734 Sep, [facility] [place] [facility] [address] [id number] [place] [address]- 6283 Sep, [facility] [place] [facility] [address] [id number] [place] [address]- 9531 Sep, [facility] [place] [facility] [address] [id number] [place] [address]- 7112 Sep, [facility] [place] [facility] [address] [id number] [place] [address]- 2729 Sep, [facility] [place] [facility] [address] [id number] [place] [address]- 0500 Sep, [facility] [place] [facility] [address] [id number] [place] [address]- 8242 Sep, [facility] [place] [facility] [address] [id number] [place] [address]- 6410 Aug, [facility] [place] [facility] [address] [id number] [place] [address]- 2007 Aug, [facility] [place] [facility] [address] [facility] [id number] [place] [address]- 1059 Aug, [facility] [place] [facility] [address] [id number] [place] [address]- 9976 Aug, [facility] [place] [facility] [address] [id number] [place] [address] Aug, [facility] [place] [facility] [address] [id number] [place] [address] Aug, [facility] [place] [facility] [address] [id number] [place] [address] Jul, [facility] [place] [facility] [address] [id number] [place] [address] Jul, [facility] [place] [facility] [address] [id number] [place] [address] Jun, [facility] [place] [facility] [address] [id number] [place] [address] Jun, [facility] [place] [facility] [address] [id number] [place] [address] Jun, [facility] [place] [facility] [address] [id number] [place] [address] Jun, [facility] [place] [facility] [address] [id number] [place] [address] Jun, [facility] [place] [facility] [address] [id number] [place] [address] Jun, [facility] [place] [facility] [address] [id number] [place] [address] Jun, [facility] [place] [facility] [address] [id number] [place] [address] May, [facility] [place] [facility] [address] [id number] [place] [address] 24 May, 2013 [facility] [place] [facility] [address] [id number] [place] [address] May, [facility] [place] [facility] [address] [id number] [place] [address] May, [facility] [address] [facility] [id number] [address] May, [facility] [id number] [address] May, [facility] [id number] [address] May, [facility] [id number] [address] May, [facility] [id number] [address] May, [facility] [id number] [address] Apr, IMMUNIZATIONS No Known Immunizations SOCIAL HISTORY Never Assessed REASON FOR VISIT R hip pain/x-ray order PLAN OF CARE VITAL SIGNS MEDICATIONS Unknown Medications RESULTS No Results PROCEDURES No Known procedures INSTRUCTIONS MEDICATIONS ADMINISTERED No Known Medications MEDICAL (GENERAL) HISTORY Type Description Date Medical History no surgeries or serious illness Medical History IUD (intrauterine device) in place (resolved 12/06/2015) Surgical History surgical extraction of 3rd molars 08/2001
--- OUTSIDE RECORDS SUMMARY | 2018-07-16 10:46 | XMS REPORT ---
Author Author CLAUS CUETO [facility] Address [address] [place] [address] Care Team Providers Care Athletic Scout Name Role Phone CLAUS CUETO Unavailable PROBLEMS Type Condition ICD9-CM Code [id number] Code Onset Dates Condition Status SNOMED Code Problem Breast lump N63 Active 05817468 Problem IUD (intrauterine device) in place Z97.5 Active 217548395 ALLERGIES Unknown Allergies SOCIAL HISTORY No smoking Hx information available PLAN OF CARE VITAL SIGNS MEDICATIONS Unknown Medications RESULTS Name Result Date Reference Range Ultrasound : Breast(s), Both 2016-09-04 PROCEDURES No Known procedures IMMUNIZATIONS No Known Immunizations
--- OUTSIDE RECORDS SUMMARY | 2018-07-16 10:46 | XMS REPORT ---
Author Author ROBERT TREJO [facility] Address [address] [place] [address] Care Team Providers Care Coal Pipeline Operator Name Role Phone ROBERT TREJO Unavailable PROBLEMS Type Condition ICD9-CM Code RFU56-PS Code Onset Dates Condition Status SNOMED Code Problem Breast lump N63 Active 38999549 Problem IUD (intrauterine device) in place Z97.5 Active 057253634 ALLERGIES Substance Reaction Event Type Date Status N.K.D.A. Unknown Non Drug Allergy Aug, Unknown SOCIAL HISTORY No smoking Hx information available PLAN OF CARE Activity Details Follow Up prn Reason:restorative VITAL SIGNS MEDICATIONS Unknown Medications RESULTS No Results PROCEDURES Procedure Date Ordered Related Diagnosis Body Site BITEWINGS - FOUR FILMS Aug 17, 2016 PROPHYLAXIS - ADULT Aug 17, 2016 [facility] Employee/Board adjustment Aug 17, 2016 Billing Notes on claim Aug 17, 2016 IMMUNIZATIONS No Known Immunizations
--- OUTSIDE RECORDS SUMMARY | 2018-07-16 10:47 | XMS REPORT ---
Author Author CEDEÑOLUIS [facility] Address [address] [place] [address] Care Team Providers Care Cell Technician Name Role Phone CEDEÑOLUIS Birch Unavailable PROBLEMS Type Condition ICD9-CM Code MPJ75-AU Code Onset Dates Condition Status SNOMED Code Problem Breast lump N63 Active 92271765 Problem IUD (intrauterine device) in place Z97.5 Active 876820646 ALLERGIES No Known Allergies ENCOUNTERS Encounter Location Date Diagnosis [place] [address] [address] Oct, [place] [address] [address] Sep, Dental examination Z01.20 [place] [address] [address] 26[address] Sep, Right hip pain M25.551 [place] [address] 8[address]- 1783 Aug, Right hip pain M25.551 [place] [address] [address]94- 4759 May, Encounter for immunization Z23 [place] [address] [address]- [address] Mar, Well adult exam Z00.00 and Lymphadenopathy of right cervical region R59.0 [place] [address] [address]- [address]59 Mar, Lymphadenopathy of right cervical region R59.0 [place] [address] [place] [id number] [place] [address]- 8688 Jan, Well adult exam Z00.00 [facility] [place] [address] [place] [id number] [place] [address] 68372- 4243 02 Jan, 2017 Acute non-recurrent maxillary sinusitis J01.00 [facility] [place] [address] [place] [id number] [place] [address] 05205- 5442 Aug, [facility] [place] [address] [place] [id number] [place] [address] 74069- 2363 Aug, Breast lump N63 [facility] [place] [address] [address]- [address] Aug, Dental examination Z01.20 [place] [address] 25443- 7268 14 May, 2016 Encounter for immunization Z23 [place] [address] [address]- 2421 December, Encounter for gynecological examination without abnormal finding Z01.419 and IUD (intrauterine device) in place Z97.5 [facility] [address] [id number] Oct, Encounter for dental examination Z01.20 [place] [address] 14[address]- 8901 29 Apr, 2015 Influenza vaccine administered V04.81 [facility] [address] [id number] 14 Apr, 2015 Encounter for dental examination V72.2 [place] [address] [place] [id number] [place] [address] 75104- 7717 14 Feb, 2015 [place] [address] 56791- 0694 08 Jan, 2015 Hip pain, right 719.45 and Somatic dysfunction of pelvic region 739.5 [place] [address] [place] [id number] [place] [address] 57219- 7366 14 Nov, 2014 [place] [address] 9[address]- 8188 Nov, [facility] [place] [facility] [address] [id number] [place] [address] 8514 Aug, [facility] [place] [facility] [address] [id number] [place] [address]- 5091 Aug, [facility] [place] [facility] [address] [id number] [place] [address]- 4158 Aug, [facility] [place] [facility] [address] [id number] [place] [address]- 2390 Aug, [facility] [place] [facility] [address] [id number] [place] [address]- 3136 May, [facility] [place] [facility] [address] [id number] [place] [address]- 7208 May, [facility] [place] [facility] [address] [id number] [place] [address]- 7292 May, [facility] [place] [facility] [address] [id number] [place] [address]- 2652 May, [facility] [place] [facility] [address] [id number] [place] [address]- 4960 May, [facility] [place] [facility] [address] [id number] [place] [address] 0588 May, [facility] [place] [facility] [address] [id number] [place] [address]- 0903 Jan, [facility] [place] [facility] [address] [id number] [place] [address] 1198 Jan, [facility] [place] [facility] [address] [id number] [place] [address]- 9588 Jan, [facility] [place] [facility] [address] [id number] [place] [address] 0494 Jan, [facility] [place] [facility] [address] [id number] [place] [address]- 3443 Jan, [facility] [place] [facility] [address] [id number] [place] [address]- 7603 Nov, [facility] [place] [facility] [address] [id number] [place] [address]- 7499 Nov, [facility] [place] [facility] [address] [id number] [place] [address]- 6660 Nov, [facility] [place] [facility] [address] [id number] [place] [address]- 6936 Nov, [facility] [place] [facility] [address] [id number] [place] [address]- 4669 Nov, [facility] [place] [facility] [address] [id number] [place] [address]- 8730 Nov, [facility] [place] [facility] [address] [id number] [place] [address]- 8065 Nov, [facility] [place] [facility] [address] [id number] [place] [address]- 0232 Nov, [facility] [place] [facility] [address] [id number] [place] [address]- 2915 Nov, [facility] [place] [facility] [address] [id number] [place] [address]- 9914 Nov, [facility] [place] [facility] [address] [id number] [place] [address]- 3568 Nov, [facility] [place] [facility] [address] [id number] [place] [address]- 0573 Nov, [facility] [place] [facility] [address] [id number] [place] [address]- 2992 Oct, [facility] [place] [facility] [address] [id number] [place] [address]- 0986 Oct, [facility] [place] [facility] [address] [id number] [place] [address]- 2970 Oct, [facility] [place] [facility] [address] [id number] [place] [address]- 3317 Oct, [facility] [place] [facility] [address] [id number] [place] [address]- 9319 Sep, [facility] [place] [facility] [address] [id number] [place] [address]- 9659 Sep, [facility] [place] [facility] [address] [id number] [place] [address]- 2013 Sep, [facility] [place] [facility] [address] [id number] [place] [address]- 0514 Sep, [facility] [place] [facility] [address] [id number] [place] [address]- 5765 Sep, [facility] [place] [facility] [address] [id number] [place] [address]- 7616 Sep, [facility] [place] [facility] [address] [facility] [id number] [place] [address]- 1195 Sep, [facility] [place] [facility] [address] [id number] [place] [address]- 2905 Sep, [facility] [place] [facility] [address] [id number] [place] [address]- 7788 Aug, [facility] [place] [facility] [address] [facility] [id number] [place] [address]- 2977 Aug, [facility] [place] [facility] [address] [facility] [id number] [place] [address]- 5433 Aug, [facility] [place] [facility] [address] [id number] [place] [address]- 8700 Aug, [facility] [place] [facility] [address] [id number] [place] [address]- 4454 Aug, [facility] [place] [facility] [address] [id number] [place] [address]- 7036 Aug, [facility] [place] [facility] [address] [id number] [place] [address]- 3762 Jul, [facility] [place] [facility] [address] [id number] [place] [address]- 4474 Jul, [facility] [place] [facility] [address] [id number] [place] [address]- 8865 Jun, [facility] [place] [facility] [address] [id number] [place] [address]- 2154 Jun, [facility] [place] [facility] [address] [id number] [place] [address]- 1069 Jun, [facility] [place] [facility] [address] [id number] [place] [address]- 1060 Jun, [facility] [place] [facility] [address] [id number] [place] [address]- 8741 Jun, [facility] [place] [facility] [address] [id number] [place] [address]- 9041 Jun, [facility] [place] [facility] [address] [id number] [place] [address]- 9742 Jun, [facility] [place] [facility] [address] [id number] [place] [address]- 7616 May, [facility] [place] [facility] [address] [id number] [place] [address]- 1021 May, [facility] [place] [facility] [address] [id number] [place] [address]- 8820 May, [facility] [place] [facility] [address] [id number] [place] [address]- 9608 May, [facility] [place] [facility] [address] [id number] [place] [address]- 5718 May, [facility] [place] [facility] [address] [id number] [place] [address]- 3307 May, [facility] [place] [facility] [address] [id number] [place] [address]- 1732 May, [facility] [place] [facility] [address] [facility] [id number] [place] [address]- 1629 May, [facility] [place] [facility] [address] [facility] [id number] [place] [address]- 8525 May, [facility] [place] [address] [facility] [id number] [place] [address]- 4210 Apr, IMMUNIZATIONS No Known Immunizations SOCIAL HISTORY Never Assessed REASON FOR VISIT Cough--TCuppettRN, Started with a sore throat 2 weeks ago & now has cough & congestion PLAN OF CARE Activity Details Follow Up prn Reason: VITAL SIGNS Height 62 in 2017-01-05 Temperature 97.9 degrees Fahrenheit 2017-01-05 Heart Rate 76 bpm 2017-01-05 Respiratory Rate 18 2017-01-05 Blood pressure systolic 104 mmHg 2017-01-05 Blood pressure diastolic 70 mmHg 2017-01-05 MEDICATIONS Medication Instructions Dosage Frequency Start Date End Date Duration Status Tylenol 1 tab Active Augmentin 875-125 MG Orally every 12 hrs 1 tablet 12h Jan,Jan 10 day(s) Active Sudafed 24 Hour 240 MG Orally Once a day 1 tablet as needed 24h Jan, 30 day(s) Active RESULTS No Results PROCEDURES No Known procedures INSTRUCTIONS MEDICATIONS ADMINISTERED No Known Medications MEDICAL (GENERAL) HISTORY Type Description Date Medical History no surgeries or serious illness Medical History IUD (intrauterine device) in place (resolved 12/06/2015) Surgical History surgical extraction of 3rd molars 08/2001
--- OUTSIDE RECORDS SUMMARY | 2018-07-16 10:47 | XMS REPORT ---
Author Author LINA TOSCANO Organization [facility] Address [address] [place] [address] Care Team Providers Care Parts Runner Name Role Phone LINA TOSCANO Unavailable PROBLEMS Type Condition ICD9-CM Code BKB50-ZC Code Onset Dates Condition Status SNOMED Code Problem Breast lump N63 Active 42318395 Problem IUD (intrauterine device) in place Z97.5 Active 278952223 ALLERGIES No Known Allergies ENCOUNTERS Encounter Location Date Diagnosis [facility] [address] [id number] December, [facility] [address] [address] Oct, Encounter for dental examination and cleaning without abnormal findings Z01.20 and Dental examination Z01.20 [facility] [address] [address]- 4642 Sep, Dental examination Z01.20 [facility] [address] [address]- [address] Sep, Right hip pain M25.551 [place] [address] [address]- [address]9 Aug, Right hip pain M25.551 [facility] [address] [place] [id number] [place] [address] 90654- 2054 May, Encounter for immunization Z23 [facility] [address] [address]- [address] Mar, Well adult exam Z00.00 and Lymphadenopathy of right cervical region R59.0 [place] [address] [address]- 0327 Mar, Lymphadenopathy of right cervical region R59.0 [place] [address] [place] [id number] [place] [address] 06709- 3463 Jan, Well adult exam Z00.00 [place] [address] [address]- 4128 Jan, Acute non-recurrent maxillary sinusitis J01.00 [place] [address] [address]- 6149 Aug, [place] [address] 38[address]- 2403 Aug, Breast lump N63 [place] [address] [address]- 6439 Aug, Dental examination Z01.20 [place] [address] 38[address]- 0960 14 May, 2016 Encounter for immunization Z23 [place] [address] 732[address]- 4878 December, Encounter for gynecological examination without abnormal finding Z01.419 and IUD (intrauterine device) in place Z97.5 [facility] [address] [id number] Oct, Encounter for dental examination Z01.20 [place] [address] [place] [id number] [place] [address] 87968- 2888 Apr, Influenza vaccine administered V04.81 [facility] [address] [place] [id number] [place] [address] [id number] Apr, 2015 Encounter for dental examination V72.2 [place] [address] 63[address]- 7543 14 Feb, 2015 [place] [address] [address]- 7755 08 Jan, 2015 Hip pain, right 719.45 and Somatic dysfunction of pelvic region 739.5 [place] [address] [place] [id number] [place] [address]- 6538 14 Nov, 2014 [facility] [place] [facility] [address] [id number] [place] [address]- 9368 Nov, [facility] [place] [facility] [address] [id number] [place] [address]- 7854 Aug, [facility] [place] [facility] [address] [id number] [place] [address]- 2072 Aug, [facility] [place] [facility] [address] [id number] [place] [address]- 9759 Aug, [facility] [place] [facility] [address] [id number] [place] [address]- 2386 Aug, [facility] [place] [facility] [address] [id number] [place] [address]- 9750 May, [facility] [place] [facility] [address] [id number] [place] [address]- 9926 May, [facility] [place] [facility] [address] [id number] [place] [address]- 3915 May, [facility] [place] [facility] [address] [id number] [place] [address]- 3379 May, [facility] [place] [facility] [address] [facility] [id number] [place] [address]- 5500 May, [facility] [place] [facility] [address] [id number] [place] [address]- 5527 May, [facility] [place] [facility] [address] [id number] [place] [address]- 8148 Jan, [facility] [place] [facility] [address] [id number] [place] [address]- 9930 Jan, [facility] [place] [facility] [address] [id number] [place] [address]- 9930 Jan, [facility] [place] [facility] [address] [id number] [place] [address]- 2376 Jan, [facility] [place] [facility] [address] [id number] [place] [address]- 9193 Jan, [facility] [place] [facility] [address] [id number] [place] [address]- 2303 Nov, [facility] [place] [facility] [address] [id number] [place] [address]- 9264 Nov, [facility] [place] [facility] [address] [id number] [place] [address]- 1679 Nov, [facility] [place] [facility] [address] [id number] [place] [address]- 8139 Nov, [facility] [place] [facility] [address] [id number] [place] [address]- 0366 Nov, [facility] [place] [facility] [address] [id number] [place] [address]- 7805 Nov, [facility] [place] [facility] [address] [id number] [place] [address]- 4173 Nov, [facility] [place] [facility] [address] [id number] [place] [address]- 4970 Nov, [facility] [place] [facility] [address] [id number] [place] [address]- 1633 Nov, [facility] [place] [facility] [address] [id number] [place] [address]- 3709 Nov, [facility] [place] [facility] [address] [id number] [place] [address]- 7319 Nov, [facility] [place] [facility] [address] [id number] [place] [address]- 9181 Nov, [facility] [place] [facility] [address] [id number] [place] [address]- 6604 Oct, [facility] [place] [facility] [address] [id number] [place] [address]- 3240 Oct, [facility] [place] [facility] [address] [id number] [place] [address]- 3594 Oct, [facility] [place] [facility] [address] [id number] [place] [address]- 2382 Oct, [facility] [place] [facility] [address] [id number] [place] [address]- 6221 Sep, [facility] [place] [facility] [address] [id number] [place] [address]- 9540 Sep, [facility] [place] [facility] [address] [id number] [place] [address]- 5266 Sep, [facility] [place] [facility] [address] [id number] [place] [address]- 6141 Sep, [facility] [place] [facility] [address] [id number] [place] [address]- 7531 Sep, [facility] [place] [facility] [address] [id number] [place] [address]- 2102 Sep, [facility] [place] [facility] [address] [id number] [place] [address]- 1679 Sep, [facility] [place] [facility] [address] [id number] [place] [address]- 0287 Sep, [facility] [place] [facility] [address] [id number] [place] [address]- 4165 Aug, [facility] [place] [facility] [address] [id number] [place] [address]- 3438 Aug, [facility] [place] [facility] [address] [id number] [place] [address]- 6133 Aug, [facility] [place] [facility] [address] [id number] [place] [address]- 4462 Aug, [facility] [place] [facility] [address] [id number] [place] [address]- 9900 Aug, [facility] [place] [facility] [address] [id number] [place] [address]- 1860 Aug, [facility] [place] [facility] [address] [id number] [place] [address]- 8086 Jul, [facility] [place] [facility] [address] [id number] [place] [address]- 6630 Jul, [facility] [place] [facility] [address] [id number] [place] [address]- 4293 Jun, [facility] [place] [facility] [address] [id number] [place] [address]- 6779 Jun, [facility] [place] [facility] [address] [id number] [place] [address]- 4358 Jun, [facility] [place] [facility] [address] [id number] [place] [address]- 8608 Jun, [facility] [address] [id number] [place] [address]- 2148 Jun, [facility] [place] [facility] [address] [id number] [place] [address]- 5073 Jun, [facility] [place] [facility] [address] [id number] [place] [address]- 8553 Jun, [facility] [place] [facility] [address] [id number] [place] [address]- 2298 May, [facility] [place] [facility] [address] [id number] [place] [address]- 7167 May, [facility] [place] [facility] [address] [id number] [place] [address]- 2276 May, [facility] [place] [facility] [address] [id number] [place] [address]- 2536 May, [facility] [place] [facility] [address] [id number] [place] [address]- 5709 May, [facility] [place] [facility] [address] [id number] [place] [address]- 1474 May, [facility] [place] [facility] [address] [id number] [place] [address]- 2546 May, [facility] [address] [facility] [id number] [place] [address]- 2546 May, [facility] [address] [facility] [id number] [place] [address]- 2546 May, [facility] [address] [facility] [id number] [place] [address]- 2546 Apr, IMMUNIZATIONS No Known Immunizations SOCIAL HISTORY Never Assessed REASON FOR VISIT Physical--tcuppettRN PLAN OF CARE Activity Details Follow Up prn Reason: VITAL SIGNS Height 62 in 2017-01-25 Weight 131.0 lbs 2017-01-25 Temperature 97.9 degrees Fahrenheit 2017-01-25 Heart Rate 72 bpm 2017-01-25 Respiratory Rate 18 2017-01-25 BMI 23.96 kg/m2 2017-01-25 Blood pressure systolic 104 mmHg 2017-01-25 Blood pressure diastolic 68 mmHg 2017-01-25 MEDICATIONS Medication Instructions Dosage Frequency Start Date End Date Duration Status Ibuprofen 200 MG Orally every 6 hrs 1 tablet with food or milk as needed 6h Active Mirena Active Tylenol 1 tab Active RESULTS No Results PROCEDURES No Known procedures INSTRUCTIONS MEDICATIONS ADMINISTERED No Known Medications MEDICAL (GENERAL) HISTORY Type Description Date Medical History no surgeries or serious illness Medical History IUD (intrauterine device) in place (resolved 12/06/2015) Surgical History surgical extraction of 3rd molars 08/2001
--- OUTSIDE RECORDS SUMMARY | 2018-07-16 10:48 | XMS REPORT | Continuity of Care Document ---
Author Author [facility] Address Unknown Phone Unavailable Allergies Active Description Code Type Severity Reaction Onset Reported/Identified Relationship to Patient Clinical Status Yes No Known Drug Allergies [id number] Drug Allergy Unknown N/A 12/01/2013 Medications There is no data. Problems Date Dx Coded Attending Type Code Diagnosis Diagnosed By 04/16/2013 V04.81 FLU SHOT 04/16/2013 CUETO DO, CLAUS K V04.81 FLU SHOT 04/16/2013 CUETO DO, CLAUS K V04.81 FLU SHOT 04/16/2013 CUETO DO, CLAUS K V04.81 FLU SHOT 04/16/2013 CUETO DO, CLAUS K V04.81 FLU SHOT 04/16/2013 CUETO DO, CLAUS K V04.81 FLU SHOT 04/16/2013 CUETO DO, CLAUS K V04.81 FLU SHOT 04/16/2013 CUETO DO, CLAUS K V04.81 FLU SHOT 04/16/2013 CUETO DO, CLAUS K V04.81 FLU SHOT 04/16/2013 LIAM BEEKEEPER FARMER, SIMÓN A V04.81 FLU SHOT 04/16/2013 CUETO DO, CLAUS K V04.81 FLU SHOT 04/16/2013 CUETO DO, CLAUS K V04.81 FLU SHOT 04/16/2013 CUETO DO, CLAUS K V04.81 FLU SHOT 04/16/2013 CUETO DO, CLAUS K V04.81 FLU SHOT 04/16/2013 LIAM BEEKEEPER FARMER, SIMÓN A V04.81 FLU SHOT 04/16/2013 CAMPOS DDS, KAREN V04.81 FLU SHOT 04/16/2013 MIGUEL AQUINO DDS V04.81 FLU SHOT 04/16/2013 CUETO DO, CLAUS K V04.81 FLU SHOT 04/16/2013 CAMPOSKAREN CANTOR DDS V04.81 FLU SHOT 04/16/2013 CUETO DO, CLAUS K V04.81 FLU SHOT 05/26/2013 CUETO DO, CLAUS K V22.1 , NORMAL OTHER 05/26/2013 CUETO DO, CLAUS K V22.1 , NORMAL OTHER 05/26/2013 CUETO DO, CLAUS K V22.1 , NORMAL OTHER 05/26/2013 CUETO DO, CLAUS K V22.1 , NORMAL OTHER 05/26/2013 CUETO DO, CLAUS K V22.1 , NORMAL OTHER 05/26/2013 CUETO DO, CLAUS K V22.1 , NORMAL OTHER 05/26/2013 CUETO DO, CLAUS K V22.1 , NORMAL OTHER 05/26/2013 CUETO DO, CLAUS K V22.1 , NORMAL OTHER 05/26/2013 LIAM BEEKEEPER FARMER, SIMÓN A V22.1 , NORMAL OTHER 05/26/2013 CUETO DO, CLAUS K V22.1 , NORMAL OTHER 05/26/2013 CUETO DO, CLAUS K V22.1 , NORMAL OTHER 05/26/2013 CUETO DO, CLAUS K V22.1 , NORMAL OTHER 05/26/2013 CUETO DO, CLAUS K V22.1 , NORMAL OTHER 05/26/2013 LIAM BEEKEEPER FARMER, SIMÓN A V22.1 , NORMAL OTHER 05/26/2013 CAMPOS DDS, KAREN V22.1 , NORMAL OTHER 05/26/2013 WHITE DDS, MIGUEL D V22.1 , NORMAL OTHER 05/26/2013 CUETO DO, CLAUS K V22.1 , NORMAL OTHER 05/26/2013 CAMPOS DDS, KAREN V22.1 , NORMAL OTHER 05/26/2013 CUETO DO, CLAUS K V22.1 , NORMAL OTHER 06/25/2013 CUETO DO, CLAUS K V73.81 HPV SCREENING 06/25/2013 CUETO DO, CLAUS K V76.2 CERVICAL CANCER SCREENING (PAP SMEAR) 06/25/2013 CUETO DO, CLAUS K V73.81 HPV SCREENING 06/25/2013 CUETO DO, CLAUS K V76.2 CERVICAL CANCER SCREENING (PAP SMEAR) 06/25/2013 CUETO DO, CLAUS K V73.81 HPV SCREENING 06/25/2013 CUETO DO, CLAUS K V76.2 CERVICAL CANCER SCREENING (PAP SMEAR) 06/25/2013 CUETO DO, CLAUS K V73.81 HPV SCREENING 06/25/2013 CUETO DO, CLAUS K V76.2 CERVICAL CANCER SCREENING (PAP SMEAR) 06/25/2013 CUETO DO, CLAUS K V73.81 HPV SCREENING 06/25/2013 CUETO DO, CLAUS K V76.2 CERVICAL CANCER SCREENING (PAP SMEAR) 06/25/2013 CUETO DO, CLAUS K V73.81 HPV SCREENING 06/25/2013 CUETO DO, CLAUS K V76.2 CERVICAL CANCER SCREENING (PAP SMEAR) 06/25/2013 LIAM BEEKEEPER FARMER, SIMÓN A V73.81 HPV SCREENING 06/25/2013 LIAM BEEKEEPER FARMER, SIMÓN A V76.2 CERVICAL CANCER SCREENING (PAP SMEAR) 06/25/2013 CUETO DO, CLAUS K V73.81 HPV SCREENING 06/25/2013 CUETO DO, CLAUS K V76.2 CERVICAL CANCER SCREENING (PAP SMEAR) 06/25/2013 CUETO DO, CLAUS K V73.81 HPV SCREENING 06/25/2013 CUETO DO, CLAUS K V76.2 CERVICAL CANCER SCREENING (PAP SMEAR) 06/25/2013 CUETO DO CLAUS K V73.81 HPV SCREENING 06/25/2013 CUETO DO, CLAUS K V76.2 CERVICAL CANCER SCREENING (PAP SMEAR) 06/25/2013 CUETO DO, CLAUS K V73.81 HPV SCREENING 06/25/2013 CUETO DO, CLAUS K V76.2 CERVICAL CANCER SCREENING (PAP SMEAR) 06/25/2013 LIAM BEEKEEPER FARMER, SIMÓN A V73.81 HPV SCREENING 06/25/2013 LIAM BEEKEEPER FARMER, SIMÓN A V76.2 CERVICAL CANCER SCREENING (PAP SMEAR) 06/25/2013 BETH DDSKAREN V73.81 HPV SCREENING 06/25/2013 CAMPOS DDS, KAREN V76.2 CERVICAL CANCER SCREENING (PAP SMEAR) 06/25/2013 MIGUEL AQUINO DDS V73.81 HPV SCREENING 06/25/2013 MIGUEL AQUINO DDS V76.2 CERVICAL CANCER SCREENING (PAP SMEAR) 06/25/2013 CUETO DO, CLAUS K V73.81 HPV SCREENING 06/25/2013 CUETO DO, CLAUS K V76.2 CERVICAL CANCER SCREENING (PAP SMEAR) 06/25/2013 CAMPOS DDS, KAREN V73.81 HPV SCREENING 06/25/2013 CAMPOS DDS, KAREN V76.2 CERVICAL CANCER SCREENING (PAP SMEAR) 06/25/2013 MUNDO UCETO DOA K V73.81 HPV SCREENING 06/25/2013 ROM HERNANDEZ, CLAUS K V76.2 CERVICAL CANCER SCREENING (PAP SMEAR) 08/14/2013 ROM HERNANDEZ, CLAUS K 487.1 INFLUENZA 08/14/2013 ROM HERNANDEZ, CLAUS K 487.1 INFLUENZA 08/14/2013 ROM HERNANDEZ, CLAUS K 487.1 INFLUENZA 08/14/2013 LIAM BEEKEEPER FARMER, SIMÓN A 487.1 INFLUENZA 08/14/2013 ROM HERNANDEZ, CLAUS K 487.1 INFLUENZA 08/14/2013 ROM HERNANDEZ, CLAUS K 487.1 INFLUENZA 08/14/2013 ROM HERNANDEZ, CLAUS K 487.1 INFLUENZA 08/14/2013 ROM HERNANDEZ, CLAUS K 487.1 INFLUENZA 08/14/2013 LIAM BEEKEEPER FARMER, SMIÓN A 487.1 INFLUENZA 08/14/2013 CAMPOS DDS, KAREN 487.1 INFLUENZA 08/14/2013 WHITE DDS, MIGUEL De Leon 487.1 INFLUENZA 08/14/2013 ROM HERNANDEZ, CLAUS K 487.1 INFLUENZA 08/14/2013 CAMPOS DDS, KAREN 487.1 INFLUENZA 08/14/2013 RMO HERNANDEZ, CLAUS K 487.1 INFLUENZA 09/17/2013 ROM HERNANDEZ, CLAUS K V06.1 TDAP DX 09/17/2013 ROM HERNANDEZ, CLAUS K V06.1 TDAP DX 09/17/2013 LIAM BEEKEEPER FARMER, SIMÓN A V06.1 TDAP DX 09/17/2013 ROM HERNANDEZ, CLAUS K V06.1 TDAP DX 09/17/2013 ROM HERNANDEZ, CLAUS K V06.1 TDAP DX 09/17/2013 ROM HERNANDEZ, CLAUS K V06.1 TDAP DX 09/17/2013 ROM HERNANDEZ, CLAUS K V06.1 TDAP DX 09/17/2013 LIAM BEEKEEPER FARMER, SIMÓN A V06.1 TDAP DX 09/17/2013 CAMPOS DDS, KAREN V06.1 TDAP DX 09/17/2013 WHITE DDS, MIGUEL De Leon V06.1 TDAP DX 09/17/2013 ROM HERNANDEZ, CLAUS K V06.1 TDAP DX 09/17/2013 CAMPOS DDS, KAREN V06.1 TDAP DX 09/17/2013 CUETO DO, CLAUS K V06.1 TDAP DX 10/15/2013 SIMÓN WHEELER APRN A 791.5 GLYCOSURIA 10/15/2013 CUETO DO, CLAUS K 791.5 GLYCOSURIA 10/15/2013 CUETO DO, CLAUS K 791.5 GLYCOSURIA 10/15/2013 CUETO DO, CLAUS K 791.5 GLYCOSURIA 10/15/2013 CUETO DO, CLAUS K 791.5 GLYCOSURIA 10/15/2013 SIMÓN WHEELER APRN A 791.5 GLYCOSURIA 10/15/2013 CAMPOS DDS, KAREN 791.5 GLYCOSURIA 10/15/2013 WHITE DDS, MIGUEL De Leon 791.5 GLYCOSURIA 10/15/2013 CUETO DO, CLAUS K 791.5 GLYCOSURIA 10/15/2013 CAMPOS DDS, KAREN 791.5 GLYCOSURIA 10/15/2013 CUETO DO, CLAUS K 791.5 GLYCOSURIA 11/04/2013 CUETO DO, CLAUS K V28.6 GBS SCREENING 11/04/2013 CUETO DO, CLAUS K V28.6 GBS SCREENING 11/04/2013 CUETO DO, CLAUS K V28.6 GBS SCREENING 11/04/2013 SIMÓN WHEELER APRN A V28.6 GBS SCREENING 11/04/2013 CAMPOS DDS, KAREN V28.6 GBS SCREENING 11/04/2013 WHITE DDS, MIGUEL De Leon V28.6 GBS SCREENING 11/04/2013 CUETO DO CLAUS K V28.6 GBS SCREENING 11/04/2013 CAMPOS CARAS, KAREN V28.6 GBS SCREENING 11/04/2013 CUETO DO, CLAUS K V28.6 GBS SCREENING 12/02/2013 CUETO DO CLAUS K Ot 658.01 OLIGOHYDRAMNIOS-DELIVER 12/02/2013 CUETO DO CLAUS K Ot 664.81 OB PERINEAL TRAU NEC-DEL 12/02/2013 CUETO DO CLAUS K Ot V27.0 DELIVER-SINGLE LIVEBORN 01/12/2014 MUNDO CUETO DOA K 565.0 ANAL FISSURE 01/12/2014 CUETO DO CLAUS K V24.2 F/U, ROUTINE 01/12/2014 CUETO DO CLAUS K V25.09 CONTRACEPTIVE COUNSELING - GENERAL 01/12/2014 LIAM RODRIGUEZ, SIMÓN A 565.0 ANAL FISSURE 01/12/2014 LIAM BEEKEEPER FARMER, SIMÓN A V24.2 F/U, ROUTINE 01/12/2014 LIAM RODRIGUEZ, SIMÓN A V25.09 CONTRACEPTIVE COUNSELING - GENERAL 01/12/2014 CAMPOS DDS, KAREN 565.0 ANAL FISSURE 01/12/2014 CAMPOS DDS, KAREN V24.2 F/U, ROUTINE 01/12/2014 CAMPOS DDS, KAREN V25.09 CONTRACEPTIVE COUNSELING - GENERAL 01/12/2014 WHITE DDS, MIGUEL De Leon 565.0 ANAL FISSURE 01/12/2014 WHITE DDS, MIGUEL De Leon V24.2 F/U, ROUTINE 01/12/2014 WHITE DDS, MIGUEL De Leon V25.09 CONTRACEPTIVE COUNSELING - GENERAL 01/12/2014 CUETO MUNDO HERNANDEZA K 565.0 ANAL FISSURE 01/12/2014 MUNDO CUETO DOA K V24.2 F/U, ROUTINE 01/12/2014 CUETO MUNDO HERNANDEZA K V25.09 CONTRACEPTIVE COUNSELING - GENERAL 01/12/2014 CAMPOS DDS, KAREN 565.0 ANAL FISSURE 01/12/2014 CAMPOS DDS, KAREN V24.2 F/U, ROUTINE 01/12/2014 CAMPOS CARAS, KAREN V25.09 CONTRACEPTIVE COUNSELING - GENERAL 01/12/2014 MUNDO CUETO DOA K 565.0 ANAL FISSURE 01/12/2014 CUETO DOMUNDOA K V24.2 F/U, ROUTINE 01/12/2014 CUETO DO CLAUS K V25.09 CONTRACEPTIVE COUNSELING - GENERAL 02/02/2014 LIAM BEEKEEPER FARMERSIMÓN Salcedo A V25.11 IUD INSERTION 02/02/2014 CAMPOS DDS, KAREN V25.11 IUD INSERTION 02/02/2014 MILES DDS, MIGUEL De Leon V25.11 IUD INSERTION 02/02/2014 MUNDO CUETO DOA K V25.11 IUD INSERTION 02/02/2014 KAREN CAMPOS DDS V25.11 IUD INSERTION 02/02/2014 CLAUS CUETO DO V25.11 IUD INSERTION 06/01/2014 CLAUS CUETO DO 611.72 LUMP OR MASS IN BREAST 06/01/2014 CLAUS CUETO DO V24.1 CARE AND EXAMINATION OF LACTATING MOTHER 06/01/2014 KAREN CAMPOS DDS 611.72 LUMP OR MASS IN BREAST 06/01/2014 KAREN CAMPOS DDS V24.1 CARE AND EXAMINATION OF LACTATING MOTHER 06/01/2014 CLAUS CUETO DO 611.72 LUMP OR MASS IN BREAST 06/01/2014 CLAUS CUETO DO V24.1 CARE AND EXAMINATION OF LACTATING MOTHER 06/25/2014 CLAUS CUETO DO Ot 611.72 09/04/2016 CLAUS CUETO DO, Ot V22.1 SUPERVIS OTH NORMAL PREG 09/04/2016 CLAUS CUETO DO Ot 641.93 ANTEPART HEM NOS-ANTEPAR 09/04/2016 CLAUS CUETO DO Ot 623.8 NONINFLAM DIS VAGINA NEC 09/04/2016 CLAUS CUETO DO Ot 648.93 OTH CURR COND-ANTEPARTUM 09/04/2016 CLAUS CUETO DO Ot 654.73 ABNORM VAGINA-ANTEPARTUM 09/04/2016 CLAUS CUETO DO Ot 789.00 ABDOMINAL PAIN, UNSPECIFIED SITE 09/04/2016 CLAUS CUETO DO Ot V28.81 ENCOUNTER FOR ANATOMIC SURVEY 09/04/2016 SIMÓN WHEELER BEEKEEPER FARMER Ot 658.03 OLIGOHYDRAMNIOS-ANTEPAR 09/04/2016 SIMÓN WHEELER BEEKEEPER FARMER Ot V28.81 ENCOUNTER FOR ANATOMIC SURVEY 09/04/2016 CLAUS CUETO DO Ot 658.93 AMNION PROB NOS-ANTEPART 09/04/2016 CLAUS CUETO DO Ot 611.72 LUMP OR MASS IN BREAST 09/05/2016 CLAUS CUETO DO Ot N63 UNSPECIFIED LUMP IN BREAST 10/02/2016 CLAUS CUETO DO Ot N63 UNSPECIFIED LUMP IN BREAST 02/25/2018 CLAUS CUETO DO Ot K80.20 CALCULUS OF GALLBLADDER W/O CHOLECYSTITI 03/28/2018 CLAUS CUETO DO Ot K80.20 CALCULUS OF GALLBLADDER W/O CHOLECYSTITI 07/08/2018 CLAUS CUETO DO Ot V22.1 SUPERVIS OTH NORMAL PREG 07/08/2018 CLAUS CUETO DO Ot 641.93 ANTEPART HEM NOS-ANTEPAR 07/08/2018 CLAUS CUETO DO Ot 623.8 NONINFLAM DIS VAGINA NEC 07/08/2018 CLAUS CUETO DO Ot 648.93 OTH CURR COND-ANTEPARTUM 07/08/2018 CLAUS CUETO DO Ot 654.73 ABNORM VAGINA-ANTEPARTUM 07/08/2018 CLAUS CUETO DO Ot 789.00 ABDOMINAL PAIN, UNSPECIFIED SITE 07/08/2018 CLAUS CUETO DO Ot V28.81 ENCOUNTER FOR ANATOMIC SURVEY 07/08/2018 SIMÓN WHEELER BEEKEEPER FARMER Ot 658.03 OLIGOHYDRAMNIOS-ANTEPAR 07/08/2018 SIMÓN WHEELER BEEKEEPER FARMER Ot V28.81 ENCOUNTER FOR ANATOMIC SURVEY 07/08/2018 CLAUS CUETO DO Ot 658.93 AMNION PROB NOS-ANTEPART 07/08/2018 CLAUS CUETO DO Ot 611.72 LUMP OR MASS IN BREAST 07/08/2018 CLAUS CUETO DO Ot N63 UNSPECIFIED LUMP IN BREAST 07/08/2018 CLAUS CUETO DO Ot K80.20 CALCULUS OF GALLBLADDER W/O CHOLECYSTITI 07/08/2018 ANTONIO DICKEY DO Ot Z01.818 ENCOUNTER FOR OTHER PREPROCEDURAL EXAMIN Procedures Code [place] [address] UA LONG DIP 05/26/2013 79093 ROUTINE VENIPUNCTURE 05/27/2013 42712 TSH 05/28/2013 68110 CBC 05/28/2013 91394 SYPHILIS TEST 05/28/2013 47245 HIV ANTIBODIES (RML) 05/28/2013 55249 RUBELLA ANTIBODY, IGG 05/28/2013 92726 ANTIBODY SCREEN (order) 05/28/2013 61762 BLOOD TYPE/Rh FACTOR 05/28/2013 00760 HEP B SURFACE ANTIGEN (RML) 05/28/2013 41951 CULTURE UROGENITAL 06/25/2013 28348 PAP SMEAR 06/25/2013 Q0091 PAP SMEAR OBTAIN SMEAR 06/25/2013 52956 UA OB DIP 06/25/2013 81557 UA W/ CULTURE IF INDICATED 07/02/2013 61106 CULTURE URINE 07/04/2013 62655 UA OB DIP 07/23/2013 90317 INFLUENZA A & B (IN-HOUSE) 08/14/2013 02265 UA OB DIP 08/20/2013 99491 ROUTINE VENIPUNCTURE 09/17/2013 80609 GLUCOSE HOSSEIN 1 HOUR 09/17/2013 63943 CBC 09/17/2013 80425 UA OB DIP 09/17/2013 36113 UA OB DIP 10/01/2013 76622 UA OB DIP 10/15/2013 19598 GLUCOSE FINGER STICK 10/15/2013 50691 UA OB DIP 10/29/2013 52828 UA OB DIP 11/04/2013 59414 CULTURE GROUP B STREP VAG 11/06/2013 41829 UA OB DIP 11/10/2013 17661 NON-STRESS TEST 11/19/2013 89337 US OB - LIMITED 11/19/2013 75351 BIOPHYSICAL PROFILE () W/NST 11/24/2013 05498 NON-STRESS TEST 11/26/2013 11082 UA OB DIP 11/26/2013 27921 NON-STRESS TEST 11/28/2013 73.4 MEDICAL INDUCTION LABOR 12/01/2013 75.69 REPAIR OB LACERATION NEC 12/01/2013 23053 IUD INSERTION 02/02/2014 J7302 LEVONORGESTREL IU CONTRACEPT 02/02/2014 90754 TEST, URINE (IN- HOUSE) 02/02/2014 23357 US BREAST ULTRASOUND, RIGHT 06/01/2014 18910 INFLUENZA A & B (IN-HOUSE) 08/28/2014 Results Test Result Range CBC With Differential/Platelet - 03/29/17 08:16 WBC 7.0 x10E3/uL 3.4-10.8 RBC 4.26 x10E6/uL 3.77-5.28 Hemoglobin 13.4 g/dL 11.1-15.9 Hematocrit 40.1 % 34.0-46.6 MCV 94 fL 79-97 MCH 31.5 pg 26.6-33.0 MCHC 33.4 g/dL 31.5-35.7 RDW 13.2 % 12.3-15.4 Platelets 290 x10E3/uL 150-379 Neutrophils 70 % Lymphs 24 % Monocytes 5 % Eos 1 % Basos 0 % Neutrophils (Absolute) 4.8 x10E3/uL 1.4-7.0 Lymphs (Absolute) 1.7 x10E3/uL 0.7-3.1 Monocytes(Absolute) 0.4 x10E3/uL 0.1-0.9 Eos (Absolute) 0.1 x10E3/uL 0.0-0.4 Baso (Absolute) 0.0 x10E3/uL 0.0-0.2 Immature Granulocytes 0 % Immature Grans (Abs) 0.0 x10E3/uL 0.0-0.1 Comp. Metabolic Panel (14) - 03/29/17 08:16 Glucose, Serum 74 mg/dL 65-99 BUN 15 mg/dL 6-20 Creatinine, Serum 0.92 mg/dL 0.57-1.00 eGFR If NonAfricn Am 81 mL/min/1.73 >59 eGFR If Africn Am 93 mL/min/1.73 >59 BUN/Creatinine Ratio 16 9-23 Sodium, Serum 140 mmol/L 134-144 Potassium, Serum 4.7 mmol/L 3.5-5.2 Chloride, Serum 101 mmol/L 96-106 Carbon Dioxide, Total 23 mmol/L 18-29 Calcium, Serum 9.5 mg/dL 8.7-10.2 Protein, Total, Serum 7.7 g/dL 6.0-8.5 Albumin, Serum 4.8 g/dL 3.5-5.5 Globulin, Total 2.9 g/dL 1.5-4.5 A/G Ratio 1.7 1.2-2.2 Bilirubin, Total 0.4 mg/dL 0.0-1.2 Alkaline Phosphatase, S 48 IU/L 39-117 AST (SGOT) 19 IU/L 0-40 ALT (SGPT) 14 IU/L 0-32 Lipid Panel - 03/29/17 08:16 Cholesterol, Total 163 mg/dL 100-199 Triglycerides 46 mg/dL 0-149 HDL Cholesterol 61 mg/dL >39 VLDL Cholesterol Caleb 9 mg/dL 5-40 LDL Cholesterol Calc 93 mg/dL 0-99 SUREPATH PAP AND HPV mRNA E6/E7 - 02/07/18 16:59 CLINICAL INFORMATION: NRG LMP: NRG PREV. PAP: 2013 NRG PREV. BX: NRG SOURCE: Cervix NRG STATEMENT OF ADEQUACY: NRG INTERPRETATION/RESULT: NRG FLOORING MECHANIC: NRIan HPV mRNA E6/E7, SUREPATH VIAL Not Detected NOT DETECTED COMMENT NRG CBC - 02/11/18 08:28 WHITE BLOOD CELL COUNT 6.5 Thousand/uL 3.8-10.8 RED BLOOD CELL COUNT 4.30 Million/uL 3.80-5.10 HEMOGLOBIN 13.7 g/dL 11.7-15.5 HEMATOCRIT 41.5 % 35.0-45.0 MCV 96.5 fL 80.0-100.0 MCH 31.9 pg 27.0-33.0 MCHC 33.0 g/dL 32.0-36.0 RDW 11.7 % 11.0-15.0 PLATELET COUNT 235 Thousand/uL 140-400 MPV 10.9 fL 7.5-12.5 ABSOLUTE NEUTROPHILS 4323 cells/uL 7972-8826 ABSOLUTE LYMPHOCYTES 1710 cells/uL 850-3900 ABSOLUTE MONOCYTES 338 cells/uL 200-950 ABSOLUTE EOSINOPHILS 78 cells/uL 15-500 ABSOLUTE BASOPHILS 52 cells/uL 0-200 NEUTROPHILS 66.5 % NRG LYMPHOCYTES 26.3 % NRG MONOCYTES 5.2 % NRG EOSINOPHILS 1.2 % NRG BASOPHILS 0.8 % NRG Encounters ACCT No. Visit Date/Time Discharge Status Pt. Type Provider Facility Loc./Unit Complaint [id number] 08/28/2014 08:42:00 08/28/2014 23:59:59 CLS Outpatient CLAUS CUETO DO [id number] 06/22/2014 08:45:00 06/22/2014 23:59:59 CLS Outpatient KAREN CAMPOS DDS [id number] 06/01/2014 09:31:00 06/01/2014 23:59:59 CLS Outpatient CLAUS CUETO DO [id number] 05/19/2014 10:28:00 05/19/2014 23:59:59 CLS Outpatient MIGUEL AQUINO DDS [id number] 03/23/2014 11:04:00 03/23/2014 23:59:59 CLS Outpatient KAREN CAMPOS DDS [id number] 02/02/2014 15:34:00 02/02/2014 23:59:59 CLS Outpatient SIMÓN WHEELER APRN [id number] 01/12/2014 10:04:00 01/12/2014 23:59:59 CLS Outpatient CUETO DOCLAUS [id number] 11/26/2013 08:00:00 11/26/2013 23:59:59 CLS Outpatient CUETO DOCLAUS [id number] 11/10/2013 15:36:00 11/10/2013 23:59:59 CLS Outpatient CUETO DOCLAUS [id number] 10/29/2013 08:40:00 10/29/2013 23:59:59 CLS Outpatient CUETO DOCLAUS [id number] 10/15/2013 08:43:00 10/15/2013 23:59:59 CLS Outpatient SIMÓN WHEELER APRN [id number] 10/01/2013 08:34:00 10/01/2013 23:59:59 CLS Outpatient CUETO DOCLAUS [id number] 09/17/2013 08:31:00 09/17/2013 23:59:59 CLS Outpatient CUETO DOCLAUS [id number] 08/20/2013 09:09:00 08/20/2013 23:59:59 CLS Outpatient CUETO DOCLAUS [id number] 07/23/2013 08:51:00 07/23/2013 23:59:59 CLS Outpatient CUETO DOCLAUS [id number] 07/02/2013 10:01:00 07/02/2013 23:59:59 CLS Outpatient CUETO DOCLAUS [id number] 06/25/2013 08:30:00 06/25/2013 23:59:59 CLS Outpatient CUETO DOCLAUS [id number] 05/27/2013 16:59:00 05/27/2013 23:59:59 CLS Outpatient CUETO DOCLAUS [id number] 05/26/2013 15:16:00 05/26/2013 23:59:59 CLS Outpatient CUETO DOCLAUS [id number] 04/16/2013 11:15:00 Document Registration [id number] 07/08/2018 05:38:00 07/08/2018 14:43:00 DIS Outpatient ANTONIO DICKEY DO [facility] PREOP CHOLELITHIASIS [id number] 02/25/2018 06:47:00 02/25/2018 23:59:59 CLS Outpatient CUETO DOCLAUS Michelle [facility] RAD RUQ ABDOMINAL PAIN [id number] 09/04/2016 08:40:00 09/04/2016 23:59:59 CLS Outpatient CLAUS CUETO DO [facility] RAD RT BREAST LUMP [id number] 06/08/2014 09:17:00 06/08/2014 23:59:59 CLS Outpatient CLAUS CUETO DO [facility] RAD RT BREAST LUMP [id number] 11/24/2013 08:51:00 11/24/2013 23:59:59 CLS Outpatient CLAUS CUETO DO [facility] RAD BORDERLINE LOW NATE [id number] 11/19/2013 14:39:00 11/19/2013 23:59:59 CLS Outpatient LIAMKYLAHSIMÓN A BEEKEEPER FARMER [facility] RAD NATE [id number] 07/14/2013 14:37:00 07/14/2013 23:59:59 CLS Outpatient CLAUS CUETO DO [facility] RAD ANATOMY SONO [id number] 05/21/2013 09:11:00 05/21/2013 23:59:59 CLS Outpatient CLAUS CUETO DO [facility] RAD VAGINAL BLEEDING [id number] 05/12/2013 13:01:00 05/12/2013 23:59:59 CLS Outpatient CLAUS CUETO DO [facility] RAD FOLLOW UP [id number] 04/28/2013 10:09:00 04/28/2013 23:59:59 CLS Outpatient CLAUS CUETO DO [facility] RAD VIVABILITY [id number] 07/16/2018 10:34:00 ACT Outpatient ANTONIO DICKEY DO [facility] SDC CHOLELITHIASIS [id number] 12/01/2013 06:11:00 ACT Inpatient ROM HERNANDEZ CLAUS Michelle [facility] WS INDUCTION [id number] 03/30/2017 08:08:00 Document Registration [id number] 02/11/2018 08:20:00 02/11/2018 23:59:59 CLS Out[facility] [id number] 02/11/2018 08:20:00 Document Registration [id number] 02/07/2018 15:40:00 Document Registration
[2018-07-16] MEDS: LACTATED RINGERS 1,000 ML IV PRN ×3 (11:05→16:11)
[2018-07-16] MEDS ORDERED: ONDANSETRON 4 MG/2 ML (SDV) Z0FRAN ONE ×2 (11:26→11:31)
[2018-07-16] MEDS ORDERED: SCOPOLAMINE 1.5 MG (TRANSDERM-SCOP) PATCH ONE (11:26)
[2018-07-16] MEDS ORDERED: ceFAZolin 2 GM IV Premixed 50 ML ONE (11:27)
[2018-07-16] MEDS ORDERED: SCOPOLAMINE 1.5 MG (TRANSDERM-SCOP) PATCH TOP ONE (11:30)
[2018-07-16] MEDS ORDERED: ONDANSETRON 4 MG/2 ML (SDV) Z0FRAN IV ONE (11:30)
[2018-07-16] MEDS ORDERED: SEVOFLURANE (ULTANE) 15 ML INHAL SOLN ONE (11:31)
[2018-07-16] MEDS ORDERED: fentaNYL INJECTION 100 MCG/2 ML AMP ONE ×2 (11:31→13:23)
[2018-07-16] MEDS ORDERED: NEOSTIGMINE 1 MG/ML 5 ML SYRINGE ONE (11:31)
[2018-07-16] MEDS ORDERED: DEXAMETHASONE 10 MG/ML (DECADRON) 1 ML VIAL ONE ×2 (11:31→12:47)
[2018-07-16] MEDS ORDERED: ROCURONIUM 10 MG/ML 5 ML SYRINGE IV ONE (11:31)
[2018-07-16] MEDS ORDERED: LIDOCAINE PF 2% 5 ML (XYLOCAINE) VIAL ONE (11:31)
[2018-07-16] MEDS ORDERED: proPOfol 200 MG/20 ML (DIPRIVAN) VIAL IV ONE (11:31)
[2018-07-16] MEDS ORDERED: GLYCOPYRROLATE 0.2 MG/ML (ROBINUL) 2 ML VIAL ONE (11:31)
[2018-07-16] MEDS ORDERED: MIDAZOLAM 2 MG/2 ML (VERSED) VIAL ONE (11:32)
[2018-07-16] MEDS ORDERED: LACTATED RINGERS 1,000 ML IV PRN (11:35)
[2018-07-16 11:40] LABS: BASOPHILS # (AUTO) 0.1 10^3/uL (0.0-0.1); BASOPHILS % (AUTO) 1 % (0-10); EOSINOPHILS # (AUTO) 0.1 10^3/uL (0.0-0.3); EOSINOPHILS % (AUTO) 2 % (0-10); HEMATOCRIT 38 % (35-52); HEMOGLOBIN 12.6 G/DL (11.5-16.0); LYMPHOCYTES # (AUTO) 1.8 X 10^3 (1.0-4.0); LYMPHOCYTES % (AUTO) 29 % (12-44); MEAN CORPUSCULAR HEMOGLOBIN 32 PG (25-34); MEAN CORPUSCULAR HGB CONC 33 G/DL (32-36); MEAN CORPUSCULAR VOLUME 97 FL (80-99); MEAN PLATELET VOLUME 10.4 FL (7.4-10.4); MONOCYTES # (AUTO) 0.4 X 10^3 (0.0-1.0); MONOCYTES % (AUTO) 6 % (0-12); NEUTROPHILS # (AUTO) 3.8 X 10^3 (1.8-7.8); NEUTROPHILS % (AUTO) 63 % (42-75); PLATELET COUNT 224 10^3/uL (130-400); RED BLOOD COUNT 3.95 10^6/uL (4.35-5.85); RED CELL DISTRIBUTION WIDTH 12.7 % (10.0-14.5); WHITE BLOOD COUNT 6.1 10^3/uL (4.3-11.0)
[2018-07-16] MEDS ORDERED: ceFAZolin 2 GM IV Premixed 50 ML IV ONE (11:45)
--- NOTE | 2018-07-16 11:45 | Progress Note-Pre Operative ---
Pre-Operative Progress Note H&P Reviewed The H&P was reviewed, patient examined and no changes noted. Time Seen by Provider: 11:43 Date H&P Reviewed: Jul 16, 2018 Time H&P Reviewed: 11:44 Pre-Operative Diagnosis: Cholelithiasis/cholecystitis ANTONIO DICKEY DO Jul 16, 2018 11:45
[2018-07-16] MEDS ORDERED: PHENYLEPHRINE 100 MCG/ML 10 ML (ANESTHESIA) SYR ONE (12:37)
--- NOTE | 2018-07-16 13:23 | Progress Note-Post Operative ---
Post-Operative Progess Note Surgeon (s)/Fabric Sourcer (s) Surgeon ANTONIO DICKEY DO Fabric Sourcer: Dave Pre-Operative Diagnosis Cholelithiasis/cholecystitis Post-Operative Diagnosis same pending path Procedure & Operative Findings Date of Procedure 07/16/18 Procedure Performed/Findings Lap meng with IOC Anesthesia Type GET Estimated Blood Loss Estimated blood loss (mL): scant Specimens/Packing Specimens Removed GB and contents ANTONIO DICKEY DO Jul 16, 2018 13:23
[2018-07-16] MEDS ORDERED: ACHD5005 PO (13:24)
--- NOTE | 2018-07-16 13:26 | Discharge Inst-Surgical ---
Discharge Inst-Surgical Depart Medication/Instructions New, Converted or Re-Newed RX: RX Given to Pt/Family Patient Instructions Follow up Appt: Make appointment for 1 week. Instructions: No lifting greater than 10 pounds. No strenuous activity. May shower in 24 hours, no tub bath or soaking. Use incentive spirometer at home as directed. No Smoking Skin/Wound Care: May remove bandages. You need to leave the Dermabond on over incision it will fall off on its own. Symptoms to Report: Appetite Changes, Extremity Discoloration, Numbness/Tingling, Swelling Increased , Bleeding Excessive, Eyesight Changes, Pain Increased, Urine Color Change, Constipation(Persistent), Fever over 101 degree F, Pain/Pressure in chest, Urinating Difficulty, Cough Up/Vomit Blood, Heart Beat Irreg/Pounding, Pain/ Pressure in jaw, Vaginal Bleeding Increase, Cramps in feet or legs, Lightheadedness, Pain/Pressure in shoulder, Diarrhea(Persistent), Memory Changes Suddenly, Questions/Concerns, Weight gain consecutive days, Dizziness/ Fainting, Nausea/Vomiting, Shortness of Breath, Weight gain over 2 pounds If questions or concerns contact your physician Or seek help at emergency department. Activity Activity as Tolerated: Yes Activity Instructions: Avoid Stress to Incision Driving Instructions: No Driving/Refer to Diet Discharge Diet: Avoid Fatty Foods, Low Fat/Low Cholesterol Diet After 24 Hours: Clear Liquid if Nauseous If Any Problems/Questions/Issu: Contact Your Physician, Go to Emergency Room Skin/Wound Care Infection Signs and Symptoms: Increased Redness, Foul Odor of Wound, Increased Drainage, Skin Itchy or Has a Rash, Increased Swelling, Temperature Above 101 F Wound Care Comment: heating pad to shoulder and neck tonight for pain Bathing Instructions: Shower Stitches/[place]/Dermabond Dis: Dermabond Ice Pack: Ice On and Off Site (as needed for pain) ANTONIO DICKEY DO Jul 16, 2018 13:26
--- NOTE | 2018-07-16 13:45 | Diagnostic Imaging Report ---
EXAMINATION: Fluoroscopy INDICATION: Laparoscopic cholecystectomy Fluoroscopic assistance was provided for Dr. Muhammad. 8 seconds of fluoroscopy time was utilized. 39 spot films of the right upper quadrant were received from the or. There are laparoscopic devices in place. The common bile duct has been opacified via cystic duct catheter. There is no defect within the common bile duct to suggest a retained calculus. The distal common bile duct is narrowed, but there is extension of the contrast into the small bowel. IMPRESSION: Fluoroscopic assistance was provided for Dr. Brandt. Dictated by: Dictated on workstation # [id number]
[2018-07-16] MEDS ORDERED: HYDROmorphone 2 MG/ML VIAL (DILAUDID) ONE (13:59)
[2018-07-16] MEDS ORDERED: morphine INJ 10 MG/ML 1ML (SYR OR VIAL) IVP ONE (14:00)
[2018-07-16] MEDS ORDERED: ONDANSETRON 4 MG/2 ML (SDV) Z0FRAN IVP PRN (14:00)
[2018-07-16] MEDS ORDERED: HYDROmorphone 2 MG/ML VIAL (DILAUDID) IV ONE (14:00)
[2018-07-16 14:40] VITALS: BP 91/61
[2018-07-16 15:10] VITALS: BP 90/67
[2018-07-16 16:00] VITALS: BP 90/55
[2018-07-16] MEDS ORDERED: diphenhydrAMINE 50 MG/ML INJ (BENADRYL) ONE (16:21)
[2018-07-16] MEDS ORDERED: ONDANSETRON 4 MG/2 ML (SDV) Z0FRAN IVP ONE (16:30)
[2018-07-16] MEDS ORDERED: diphenhydrAMINE 50 MG/ML INJ (BENADRYL) IVP ONE (16:30)
--- NOTE | 2018-07-16 16:39 | OPERATIVE REPORT ---
DATE OF SERVICE: PREOPERATIVE DIAGNOSIS: A 37-year-old female with family history significant for gynecologic malignancy and in third decade of life. POSTOPERATIVE DIAGNOSIS: A 37-year-old female with family history significant for gynecologic malignancy and in third decade of life. PROCEDURE: Laparoscopic bilateral salpingectomy. SURGEON: Emil Ricci DO PROCESS CHEESE COOKER: Dr. Austin Brandt. ANESTHESIA: General endotracheal. ESTIMATED BLOOD LOSS: Minimal. URINE OUTPUT: Recorded on Dr. Brandt's operative report. OPERATIVE REPORT IN DETAIL: This 37-year-old female patient that was consulted in my office to consider laparoscopic bilateral salpingectomy as the patient had completed childbearing and had a significant family history for gynecologic malignancy in early age. The patient was undergoing cholecystectomy with Dr. Muhammad, a general surgeon and wished to have this portion of the procedure done at the same time. I discussed with the patient the only really included risk on adding this procedure would be risk of bleeding or loss of the ovary otherwise similar risk to that of the laparoscopic procedure already planned including risk of bleeding, infection, damage to surrounding structures including but not limited to bowel, bladder, ureter, kidneys. Prior to start of the procedure, planned to let Dr. Muhammad start the procedure and place the trocars and ports in his normal placement and then allowing me to proceed with removing the fallopian tubes. Once he has done this, I scrubbed into the procedure and looked into the pelvis, I had the patient placed in steep Trendelenburg. We were able to visualize all of the pelvic anatomy as within normal limits. I am able to elevate the uterus up out of the pelvis using a grasper. Starting at the proximal isthmic portion, I performed the following dissection bilaterally. I grasped the fallopian tube using the LigaSure bipolar cauterized and transected using the LigaSure. I then took this dissection down the mesosalpinx, amputating the fallopian tube from its surrounding blood supply. The both bilateral fallopian tubes were then removed through the 12 mm trocar that he is already placed after which there was no active bleeding noted from any of my dissection planes. I briefly irrigated the pelvis and no active bleeding once again was noted. I then turned the procedure back over to Dr. Muhammad who continues with his cholecystectomy. Job ID: [id number] DocumentID: [id number] Dictated Date: 07/16/2018 14:27:23 Atmospheric Drier Tender Date: 07/16/2018 16:38:42 Dictated By: DO DAWNA MEDINA
[2018-07-16] MEDS ORDERED: LACTATED RINGERS 1,000 ML IV SCH (16:45)
[2018-07-16 16:50] VITALS: BP 94/60
[2018-07-16 17:35] VITALS: BP 94/60
--- NOTE | 2018-07-16 21:51 | OPERATIVE REPORT ---
DATE OF SERVICE: 07/16/2018 PREOPERATIVE DIAGNOSES: Cholelithiasis, cholecystitis. POSTOPERATIVE DIAGNOSES: Cholelithiasis, cholecystitis, pending pathology. PROCEDURE: Laparoscopic cholecystectomy, intraoperative cholangiogram. SURGEON: Austin Muhammad DO. CUFFER: Villa Acosta DO. ANESTHESIA: General endotracheal tube. SPECIMEN: Gallbladder and contents. BLOOD LOSS: Scant. FLUIDS: Per anesthesia. POSTOPERATIVE CONDITION: Stable. INDICATION FOR PROCEDURE: The patient is a 37-year-old female who has been having right upper quadrant pain associated with fried and fatty foods while now. Ultrasound showed stones and she has symptoms classic for cholecystitis. FINDINGS: The patient had adhesions to the gallbladder from the omentum as well as some of the duodenum. These usually indicative of previous gallbladder attacks. PROCEDURE NOTE: After informed consent was obtained, the patient was brought to the operating room, placed in supine position. She was sterilely prepped and draped in normal fashion. Local lidocaine was used to infiltrate the skin above the umbilicus. Made an incision with #11 blade carried down through the skin into subcutaneous tissue, then deepened down to subcutaneous tissue with Bovie electrocautery down to fascia. Fascia incised with electrocautery, then bluntly entered the abdomen, swept the finger around, placed 0 Vicryl lyblrw-cp-oevig suture and placed an 11 mm trocar port under direct visualization and then created pneumoperitoneum. Placed 3 more ports in normal fashion using local lidocaine, 11 blade for stab incision VersaStep system, all done under direct visualization, one subxiphoid and 2 in the right lower quadrant. Dr. Ricci actually came in due to procedure and then we proceeded with our procedure after His was done. She was placed slightly reverse Trendelenburg and rotated left, able to visualize the gallbladder, grasped at the fundus and taken in superior direction. There were adhesions to it, picture of this was taken and these were carefully taken down with Bovie electrocautery as well as some blunt dissection. Once these were freed up also pushing the duodenum away from this then able to grasp down the Josue's pouch and pulled in the inferolateral direction and start dissecting out cystic duct and cystic artery. I was able to get around the cystic duct and the cystic artery and placed one clip distally on the cystic duct and then one distally and one proximally on the cystic artery. Cut the cystic duct assisted through Metzenbaum scissors. Placed a cholangiogram catheter and shot a cholangiogram. Good spillage of dye down the cystic duct and common bile duct and down into the small intestine. A cholangiogram catheter was then removed placed 2 clips proximally on the cystic duct and then cut the cystic duct and cystic artery with Metzenbaum scissors. Removed the gallbladder from the bed of the liver with L-hook cautery. Once it was completely removed, placed a bag in the abdomen, placed the gallbladder in the bag and then removed supraumbilical incision. Placed the port back in the abdomen, copiously irrigated with normal saline, suctioned this out, looked around, no bleeding and at this point then we laid the patient down supine, removed all ports under direct visualization, allowed pneumoperitoneum to escape, closed the supraumbilical incision with the fascia with 0 Vicryl suture previously placed. Copiously irrigated incisions with normal saline, then closed the 3 small 5 mm incisions with a single interrupted 4-0 undyed Monocryl subcuticular stitch. Closed the supraumbilical incision with 3 interrupted 4-0 undyed Monocryl subcuticular stitches. Area was cleaned and dried, Dermabond placed and Band-Aids. The patient then transferred to recovery room in stable condition. Sponge, instrument and needle count correct at the end of the case. Job ID: [id number] DocumentID: [id number] Dictated Date: 07/16/2018 18:27:20 Maintenance Service Dispatcher Date: 07/16/2018 21:50:40 Dictated By: AUSTIN MUHAMMAD DO
== END 2018-07-16 17:35 | disposition home or self-care (01) ==
LOC: SDC 10:34
PROVIDERS: ATTEND Surgery
DX: K80.10 Calculus of gallbladder with chronic cholecystitis without obstruction (principal); N83.8 Other noninflammatory disorders of ovary, fallopian tube and broad ligament; Z80.41 Family history of malignant neoplasm of ovary
CPT/HCPCS: 36415; 84703; 85025; 87081

== ENCOUNTER → 2020-10-20 | Outpatient (CLI) | payer OTHER ==
[~2020-10-20] MED LIST changes: +ACHD5005 PO
--- NOTE | 2020-10-21 08:34 | Diagnostic Imaging Report ---
INDICATION: Routine screening. No prior mammograms are available for comparison. This a baseline study. 2-D and 3-D bilateral screening mammography was performed with CAD. Both breasts are heterogeneously dense, limiting the sensitivity of mammography. No mass or malignant appearing microcalcifications are identified. Axillae are unremarkable. IMPRESSION: BI-RADS Category 1 No mammographic features suspicious for malignancy are identified. ACR BI-RADS Category 1: Negative. Result letter will be mailed to the patient. Note: At least 10% of breast cancer is not imaged by mammography. Dictated by: Dictated on workstation # [id number]
== END ==
LOC: RAD 15:30
PROVIDERS: ATTEND Family Medicine
DX: Z12.31 Encounter for screening mammogram for malignant neoplasm of breast (principal); L98.9 Disorder of the skin and subcutaneous tissue, unspecified
CPT/HCPCS: 77063; 77067

== ENCOUNTER → 2022-07-10 | Outpatient (CLI) | payer OTHER ==
[~2022-07-10] MED LIST changes: +CATHETER FLUSH 10 ML SYR IVP PRN; +FUROSEMIDE 40 MG/4 ML INJ (LASIX) IVP ONE; +FUROSEMIDE 40 MG/4 ML INJ (LASIX) ONE
--- NOTE | 2022-07-10 18:59 | Diagnostic Imaging Report ---
Exam: Nuclear medicine MAG3 study. Date: July 10, 2022. Indication: 41-year-old female, left-sided hydronephrosis. Comparison: None available. Findings: 5.01 mCi of technetium labeled MAG3 was administered. 40 mg of intravenous Lasix was also administered during the course of examination. There is minimal radiotracer uptake noted in the expected location of the left kidney which may be very small in size. There is a measured renal uptake of 98% on the right 2% on the left. There is excretion of radiotracer by the right kidney with normal half-life for clearance measured at 4.5 minutes. It is difficult to assess for clearance and excretion of radiotracer from the left kidney given minimal uptake noted. No notable excretion or clearance is noted. Impression: 1. Significantly asymmetric renal uptake with 98% right renal uptake and 2% left renal uptake. 2. Normal excretion and clearance of radiotracer from the right kidney. 3. Difficulties for assessing excretion and clearance of contrast from the left kidney although no notable excretion or clearance is appreciated. Dictated by: Dictated on workstation # [id number]
== END ==
LOC: CARD 12:48
PROVIDERS: ATTEND Family Medicine
DX: N13.30 Unspecified hydronephrosis (principal)
CPT/HCPCS: 78708; A9562